=== PATIENT | male | born 1955 | race Caucasian/White ===

== ENCOUNTER → 2018-10-10 14:49 | Outpatient (CLI) | payer OTHER, SELFPAY ==
--- NOTE | 2018-10-10 | DI.ECHO.S_ITS ---
[facility] +---------+ : : [address] : [place] : : : : [id number] : : : : Phone: [phone]+ Echocardiogram Report + + :Name: VALORIE BURGOS Study Date: 10/10/2018 Height: 77 in : :[facility] Exam Location: IS Weight: 275 lb : : Gender: Male BSA: 2.6 m2 : :: 1955 Age: 63 yrs BP: 140/80 mmHg: :Reason For Study: NEAL : :Ordering Physician: Estelita : :Parimi Performed By: Yesenia Page : + + Interpretation Summary The study quality was technically difficult. The left ventricle is normal in size. The ejection fraction is estimated to be 65-70%. The right ventricle is mildly dilated. The right ventricular systolic function is normal. No significant valvular pathology seen. The ascending aorta is moderately enlarged. The IVC is of normal diameter and collapses greater than 50% with a sniff. This suggests a low right atrial pressure of 3 mm Hg. Doppler evaluation across pulmonary valve do not support significant pulmonary hypertension. Procedure: A two-dimensional transthoracic echocardiogram with color flow and Doppler was performed. The study quality was technically difficult. There is no prior echocardiogram noted for this patient. A contrast injection of Definity was performed to improve assessment of LV function. The heart rate ranged between 56-75 bpm during the study. The patient was in normal sinus rhythm during the exam. Left Ventricle: The left ventricle is normal in size. Left ventricular wall thickness is mildly increased. There is no thrombus. The ejection fraction is estimated to be 65-70%. There are no focal wall motion abnormalities. Diastolic parameters suggest a relaxation abnormality of the left ventricle, consistent with probable normal filling pressures. Right Ventricle: The right ventricle is mildly dilated. The right ventricular systolic function is normal. Atria: The left atrium is moderately dilated. The right atrium is borderline dilated. There is no Doppler evidence for an interatrial shunt. Mitral Valve: There is mild mitral annular calcification. There is trace mitral regurgitation. Aortic Valve: The aortic valve is grossly normal. The aortic valve opens well. The aortic valve is slightly calcified. There is no aortic valve stenosis. There is trace aortic regurgitation. Tricuspid Valve: The tricuspid valve is not well visualized, but is grossly normal. Pulmonary artery pressures cannot be estimated because of the lack of a measurable TR jet velocity. There is trace tricuspid regurgitation. Pulmonic Valve: The pulmonic valve is not well visualized. There is a trace or physiologic amount of pulmonic regurgitation. Great Vessels: The aortic root is borderline dilated. The ascending aorta is moderately enlarged. The pulmonary is not well visualized. The IVC is of normal diameter and collapses greater than 50% with a sniff. This suggests a low right atrial pressure of 3 mm Hg. Pericardium/ Pleura There is no pericardial effusion. There is an anterior echo-free space consistent with a fat pad. There is no pleural effusion. MMode/2D Measurements & Calculations LVIDd: 5.2 cm LVOT diam: 2.5 cm LVIDs: 2.9 cm Ao root diam: 4.0 cm FS: 43.5 % asc Aorta Diam: 4.4 cm EPSS: 0.40 cm IVSd: 0.91 cm LVPWd: 1.3 cm LV nash. diameter/BSA (cm/m^2): 2.0 LV sys. diameter/BSA (cm/m^2): 1.1 LA A2 area: 30.8 cm2 RA long axis: 6.4 cm LA A4 area: 34.7 cm2 RA area: 24.7 cm2 LA length (vol): 6.6 cm RA vol: 81.2 ml LA vol: 137.5 ml RA : 31.7 ml/m2 LA vol index: 53.7 ml/m2 RVD1 (basal): 4.8 cm TAPSE: 3.1 cm Doppler Measurements & Calculations Ao V2 max: 124.6 cm/sec LVOT Max Solitario: 81.8 cm/sec Ao V2 mean: 80.9 cm/sec LV V1 max P.7 mmHg Ao max P.2 mmHg LV V1 VTI: 18.8 cm Ao mean P.0 mmHg YUNIOR(I,D): 3.6 cm2 Ao V2 VTI: 25.6 cm YUNIOR(V,D): 3.2 cm2 sev ratio: 0.73 YUNIOR indexed to BSA (cm^2/m^2): 1.4 MV E max solitario: 62.9 cm/sec PA V2 max: 95.4 cm/sec MV A max solitario: 74.2 cm/sec PA V2 mean: 62.6 cm/sec MV E/A: 0.85 PA mean P.8 mmHg Med Peak E' Solitario: 6.3 cm/sec PA Accel Time: 0.12 sec E/E' med: 10.0 Lat Peak E' Solitario: 9.5 cm/sec E/E' lat: 6.6 E/e' average: 8.3 MV dec time: 0.23 sec MV P1/2t: 69.9 msec MV 2t max solitario: 63.8 cm/sec MVA(2t): 3.1 cm2 Reading Physician:AIDEN
== END ==
PROVIDERS: PCP Family Medicine; Visit Provider Internal Medicine Critical Care Medicine
DX: R06.00 Dyspnea, unspecified (principal)
CPT/HCPCS: 93306; Q9957

== ENCOUNTER → 2019-01-20 13:54 | Outpatient (CLI) | payer OTHER, SELFPAY ==
--- NOTE | 2019-01-20 | DI.MRI.S_ITS ---
PROCEDURE: MR LUMBAR SPINE WO CON INDICATIONS: LUMBAR SPINE PAIN TECHNIQUE: Noncontrast sagittal T1 spin echo and T2 fast echo, sagittal STIR, axial T1 and T2 fast spin echo through the lumbar spine. In cases with scoliosis, additional coronal T2 fast spin echo may be performed. COMPARISON: [facility] [address], CR, XR LUMBAR SPINE WITH OLBIQUES PLUS FLEXION EXTENSION, 01/12/2019, 14:18. FINDINGS: Image quality: Excellent. Alignment and Curvature: There is normal bony alignment. Bone Marrow: Marrow is of normal overall signal. No acute vertebral body compression fractures. Spinal Cord: Conus medullaris terminates at the T12-L1 level. Visualized cord demonstrates normal signal and size. Paraspinous Soft Tissues: No paravertebral masses. L1-L2: Preserved disc height. Mild disc desiccation. There is diffuse posterior disc bulge. Left posterior lateral disc protrusion is present with the extruding disc extending inferiorly measuring 9 mm AP, 8 mm transverse and 25 mm cephalocaudal. This causes severe narrowing of the left lateral recess and the left L2 nerve root impingement. There is moderate bilateral facet arthropathy and hypertrophy of ligamentum flavum. The central canal is severely narrowed. Mild left foraminal stenosis. No significant right foraminal stenosis. L2-L3: Hjwd-ci-vzevjlwn loss of disc height and disc desiccation. There is diffuse posterior disc bulge. There is severe bilateral facet arthropathy and hypertrophy of ligamentum flavum. The central canal is severely narrowed. Mild foraminal stenosis bilaterally. L3-L4: Mild loss of disc height and moderate disc desiccation. There is diffuse posterior disc bulge. Small posterior central disc protrusion is present. There is mild bilateral facet arthropathy and hypertrophy of ligamentum flavum. The central canal is moderately narrowed. Minimal foraminal stenosis bilaterally. L4-L5: Moderate loss of disc height and disc desiccation. There is diffuse posterior disc bulge. Small posterior central disc protrusion is present. There is moderate bilateral facet arthropathy. The central canal is moderately narrowed. Moderate foraminal stenosis bilaterally. L5-S1: Moderate loss of disc height and disc desiccation. There is diffuse posterior disc bulge. There is moderate to severe left and mild right facet arthropathy. The central canal is wqyz-rj-tulxdmrhss narrowed. Iyzp-xz-expdsedq foraminal stenosis bilaterally. IMPRESSION: 1. Multilevel degenerative disc disease and facet arthropathy as described. 2. There is a large extruding disc at L1-L2 left posterolaterally, measuring 9 x 8 x 25 mm extending inferiorly. There is severe narrowing of the left lateral recess at L1-L2, impinging the left L2 nerve root. 3. Central canal stenosis, severe at L1-L2 and L2-L3, moderate at L3-L4 and L4-L5. 4. Multilevel foraminal stenosis as described. Dictated by: Annabel Elizondo M.D. on 01/20/2019 at 15:37 Approved by: Annabel Elizondo M.D. on 01/20/2019 at 17:24
== END ==
PROVIDERS: PCP Family Medicine; Visit Provider Physical Medicine & Rehabilitation Pain Medicine
DX: M51.36 Other intervertebral disc degeneration, lumbar region (principal); M51.37 Other intervertebral disc degeneration, lumbosacral region; M51.26 Other intervertebral disc displacement, lumbar region; M48.061 Spinal stenosis, lumbar region without neurogenic claudication; M48.07 Spinal stenosis, lumbosacral region; M47.816 Spondylosis without myelopathy or radiculopathy, lumbar region; M47.817 Spondylosis without myelopathy or radiculopathy, lumbosacral region
CPT/HCPCS: 72148

== ENCOUNTER → 2024-10-14 13:49 | Outpatient (CLI) | payer MEDICARE, SELFPAY ==
--- NOTE | 2024-10-14 13:52 | DI.CT.S_ITS ---
PROCEDURE: CT LUNG LOW DOSE SCREENING INDICATIONS: SCREENING,QUIT 11 YEARS AGO TECHNIQUE: Noncontrast 2.0-2.5 mm thick sections acquired from the pulmonary apices to the posterior costophrenic angles. 7 mm thick axial MIP, and 5 mm coronal and sagittal reformats were then acquired. For radiation dose reduction, the following was used: automated exposure control, adjustment of mA and/or kV according to patient size. COMPARISON: None. FINDINGS: Image quality: Diagnostic. Lower Neck: No enlarged lymph nodes. Thyroid: No thyroid nodules which require sonographic follow up, per consensus guidelines. Axillae: No enlarged lymph nodes. Chest Wall: Unremarkable. Bones: No aggressive appearing bony lesions. Lungs and Pleura: No pneumothorax or pleural effusions. No consolidations. Mild centrilobular emphysema is seen. Biapical scarring and bibasilar scattered atelectasis is seen. Right upper lobe: None. Right middle lobe: None. Right lower lobe: None. Left upper lobe: 2 mm solid subpleural nodule in lateral left upper lobe series 3, image 93. 3 mm solid nodule in left upper lobe series 3, image 103. Left lower lobe: none Heart: Heart size is normal. No pericardial effusion. Thoracic Vessels: The aorta and pulmonary arteries demonstrate normal size. Mild 2 vessel coronary artery atherosclerotic calcifications are seen. Mediastinum and Aileen: No enlarged lymph nodes. Esophagus: No wall thickening. Small hiatal hernia. Upper Abdomen: Visualized upper abdomen solid organs and bowel loops appear normal. Multiple well-circumscribed hypodensities are noted in right and left hepatic lobes measures up to 2.6 cm in size in left hepatic lobe and may represent hepatic cysts. IMPRESSION: 1. No suspicious pulmonary nodules. Tiny 2-3 mm left upper lobe nodules as above. LUNG-RADS 2; continued annual screening, if eligible. Clinically Significant Non-pulmonary Findings: Mild 2 vessel coronary artery atherosclerotic calcifications. Dictated by: Tariq Garibay M.D. on 10/14/2024 at 16:00 Approved by: Tariq Garibay M.D. on 10/14/2024 at 16:09
== END ==
PROVIDERS: PCP Internal Medicine; Referring Provider Internal Medicine; Visit Provider Internal Medicine
DX: Z87.891 Personal history of nicotine dependence (principal); Z12.2 Encounter for screening for malignant neoplasm of respiratory organs; I25.10 Atherosclerotic heart disease of native coronary artery without angina pectoris
CPT/HCPCS: 71271

== ENCOUNTER → 2025-02-17 16:53 | Outpatient (CLI) | payer MEDICARE, SELFPAY ==
[2025-02-17 18:07] LABS: Add Manual Diff / Slide Review NO; Basophils Absolute Auto 100 /uL (0-100); Eosinophils Absolute Auto 300 /uL (0-450); Hematocrit 44.2 % (41-53); Hemoglobin 15.1 g/dL (13.5-17.5); Lymphocytes Absolute Auto 1600 /uL (1100-4500); Lymphocytes Percent Auto 14.7 % (25-40); Mean Corpuscular HGB Conc 34.2 % (30-36); Mean Corpuscular Hemoglobin 29.8 PG (26-34); Mean Corpuscular Volume 87.1 fL (80-100); Monocytes Absolute Auto 700 /uL (0-900); Neutrophils Absolute Auto 7900 /uL (1500-7000); Neutrophils Percent Auto 74.3 % (50-75); Platelet Count 196 X10^3/uL (150-400); Red Blood Cell Count 5.08 X10^6/uL (4.5-5.9); Red Cell Distribution Width 14.1 % (11.6-14.8); White Blood Cell Count 10.6 X10^3/uL (4.5-11.0)
== END ==
PROVIDERS: PCP Family Medicine; Referring Provider Student in an Organized Health Care Education/Training Program; Visit Provider Student in an Organized Health Care Education/Training Program
DX: J44.9 Chronic obstructive pulmonary disease, unspecified (principal); J32.9 Chronic sinusitis, unspecified; J33.9 Nasal polyp, unspecified
CPT/HCPCS: 36415; 85025; 99214

== ENCOUNTER → 2025-03-01 10:56 | Outpatient (CLI) | payer MEDICARE, SELFPAY | LOC: RESP 10:57 | PROVIDERS: PCP Family Medicine; Referring Provider Student in an Organized Health Care Education/Training Program; Visit Provider Student in an Organized Health Care Education/Training Program | DX: J44.9 Chronic obstructive pulmonary disease, unspecified (principal); Z87.891 Personal history of nicotine dependence; R94.2 Abnormal results of pulmonary function studies | CPT/HCPCS: 94060; 94726; 94729 ==

== ENCOUNTER → 2025-08-25 12:49 | Outpatient (CLI) | payer MEDICARE, SELFPAY | LOC: CAR 12:50 | PROVIDERS: PCP Family Medicine; Referring Provider Family Medicine; Visit Provider Family Medicine | DX: R00.2 Palpitations (principal); R42 Dizziness and giddiness; R55 Syncope and collapse | CPT/HCPCS: 93246 ==

== ENCOUNTER 2025-09-23 10:09 | Inpatient (IN) | payer MEDICARE, SELFPAY ==
[2025-09-23] VITALS (18 sets, daily range): BP systolic 111–137; BP diastolic 58–93; PULSE 77–87; RESP 12–20; TEMP 37–37.2; O2SAT 92–99; BMI 27.2
--- NOTE | 2025-09-23 10:29 | EKG_ITS ---
[facility]
--- NOTE | 2025-09-23 10:35 | PC.NURSE ---
Pt reports he wore a ZIO patch x 1 month. F/U with Dr Nolan. Unclear of findings. reports upper midline abd chest/abd pain and pain in R shoulder. currently in afib. reports ablation in the past. is not anticoagulated.
--- NOTE | 2025-09-23 10:37 | ED_ITS ---
HPI - Arrhythmia/Palpitations
--- NOTE | 2025-09-23 10:37 | ED.ARRPALP ---
HPI - Arrhythmia/Palpitations General Chief Complaint: Arrhythmia/Palpitations Stated Complaint: shoulder and hip pain, palpitations, near syncope History of Present Illness HPI narrative: 70-year-old gentleman history of hypertension, atrial fibrillation status post ablation 2020 not on any anticoagulation for which he also has a Zio patch that did not work previously as he sweats through the patch dyslipidemia presents with bilateral shoulder pain and back pain ongoing for the last 4 days. Other than what is stated 14 point review system is negative. Related Data Home Medications ?Medication ?Instructions ?Recorded ?Confirmed ipratropium bromide 21 mcg (0.03 2 spray intranasal BID-TID PRN 02/04/25 08/12/25 %) nasal spray tamsulosin 0.4 mg capsule 0.4 mg PO ONCE PM 02/04/25 08/12/25 amlodipine 5 mg tablet 5 mg PO DAILY 02/17/25 02/17/25 ipratropium bromide 42 mcg (0.06 2 spray intranasal 3XD PRN 02/17/25 08/12/25 %) nasal spray congestion Previous Rx's ?Medication ?Instructions ?Recorded ipratropium bromide 0.02 % 2.5 ml inhalation QID shortness of 02/17/25 solution for inhalation breath or wheezing #150 mL prednisone 5 mg tablet 7.5 mg (1.5 x 5 mg) PO DAILY #135 06/08/25 tabs metformin 750 mg tablet,extended 750 mg PO QAM #90 tabs 07/01/25 release 24 hr rosuvastatin 20 mg tablet 20 mg PO DAILY #90 tabs 08/12/25 budesonide 1 mg/2 mL suspension 0.5 mg inhalation BID #60 mL 09/08/25 for nebulization losartan 100 1 tab PO DAILY #90 tabs 09/10/25 mg-hydrochlorothiazide 25 mg tablet Allergies Allergy/AdvReac Type Severity Reaction Status Date / Time chlorhexidine Allergy Hives Verified 09/23/25 10:34 Review of Systems Review of Systems ROS Unobtainable: All systems reviewed & are unremarkable except as noted in HPI and below Patient History Medical History (Updated 09/23/25 @ 14:17 by Juan Diego Corona, ) Hypertension Chronic rhinosinusitis with multiple nasal polyps Nasal polyps Recurrent sinus infections Sinus congestion Seasonal allergies Asthma Sleep apnea (~2012) COPD (chronic obstructive pulmonary disease) (~1999) Mumps Chicken pox (~1965) Colon polyps (~2015) Surgical History (Updated 12/28/24 @ 19:33 by Paulette Laurent) Anesthesia History of back surgery (~2009) History of tonsillectomy (~1962) Status post Mohs surgery (~2017) History of cardiac radiofrequency ablation (~2020) Social History Smoking Status: Former smoker Exam Narrative Exam Narrative: GENERAL: [70] year old patient appears stated age. Well-developed patient, in mild distress. HEAD: Atraumatic. Normocephalic. EYES: Pupils equal round and reactive. Extraocular motions intact. No scleral icterus. No injection or drainage. ENT: Nose without bleeding, purulent drainage. Throat without erythema, tonsillar hypertrophy or exudate. Airway patent. NECK: Trachea midline. Non tender CARDIOVASCULAR: Regular rate and rhythm without murmurs, gallops, or rubs. RESPIRATORY: Clear to auscultation. Breath sounds equal bilaterally. No wheezes, rales, or rhonchi. GASTROINTESTINAL: Abdomen soft, non-tender, nondistended. EXTREMITIES: No edema or joint tenderness. BACK: Nontender without deformity or crepitance. No flank tenderness. NEURO: AOx3. SKIN: No rash or erythema of visible areas Initial Vital Signs Initial Vital Signs: Vital Signs Pulse Rate 86 09/23/25 10:22 Respiratory Rate 13 09/23/25 10:22 Pulse Oximetry 98 09/23/25 10:22 Course Orders Ordered: ED Orders 09/23/25 10:23 Complete Blood Count AUTO DIFF Stat 09/23/25 10:39 CT angio chest PE protocol Stat EKG-12 Lead Stat 09/23/25 10:50 Comprehensive Metabolic Panel Stat Lipase Stat Magnesium Stat NT-proBNP (BNP-Adult 18+) Stat Troponin I Stat 09/23/25 12:14 CT abdomen pelvis wo con Stat 09/23/25 13:03 Troponin I Stat Discontinued Medications Aspirin (Aspirin 81 Mg Chew Tab) 324 mg PO NOW ONE Stop: 09/23/25 10:40 Last Admin: 09/23/25 10:48 Dose: 324 mg Documented By: EB Vital Signs Vital signs: Vital Signs - 8 hr 09/23/25 10:22 09/23/25 10:30 09/23/25 10:30 Temperature Pulse Rate 86 82 Respiratory Rate 13 17 Blood Pressure 127/74 Pulse Oximetry 98 97 Oxygen Delivery Method 09/23/25 10:33 09/23/25 11:00 09/23/25 11:00 Temperature 98.6 F Pulse Rate 83 78 Respiratory Rate 18 20 Blood Pressure 127/74 124/60 Pulse Oximetry 98 96 Oxygen Delivery Method Room Air 09/23/25 11:17 09/23/25 11:17 09/23/25 11:30 Temperature Pulse Rate 82 Respiratory Rate 15 Blood Pressure 135/93 H 117/62 Pulse Oximetry 99 Oxygen Delivery Method 09/23/25 11:30 09/23/25 12:00 09/23/25 12:00 Temperature Pulse Rate 80 79 Respiratory Rate 19 17 Blood Pressure 112/65 Pulse Oximetry 98 99 Oxygen Delivery Method Room Air MDM - Arrhythmia/Palpitations Lab Data 09/23/25 10:23 09/23/25 10:50 Labs: Lab Results 09/23/25 09/23/25 09/23/25 Range/Units 10:23 10:50 13:03 WBC 11.2 H (4.5-11.0) X10^3/uL RBC 5.08 (4.5-5.9) X10^6/uL Hgb 14.7 (13.5-17.5) g/dL Hct 42.5 (41-53) % MCV 83.7 (80-100) fL MCH 29.0 (26-34) PG MCHC 34.6 (30-36) % RDW 13.1 (11.6-14.8) % Plt Count 227 (150-400) X10^3/uL Neut % (Auto) 76.5 H (50-75) % Lymph % (Auto) 9.5 L (25-40) % Brantley % (Auto) 8.9 (3-14) % Eos % (Auto) 4.3 H (2-4) % Baso % (Auto) 0.8 (0-2) % Neut # (Auto) 8500 H (4303-6699) /uL Lymph # (Auto) 1100 (3017-3653) /uL Brantley # (Auto) 1000 H (0-900) /uL Eos # (Auto) 500 H (0-450) /uL Baso # (Auto) 100 (0-100) /uL Sodium 134 L (137-145) mmol/L Potassium 3.6 (3.4-5.1) mmol/L Chloride 101 (98-107) mmol/L Carbon Dioxide 22 (22-32) mmol/L BUN 13 (9-20) mg/dL Creatinine 0.82 (0.66-1.25) mg/dL Estimated GFR > 60 (>60) mL/min BUN/Creatinine Ratio 15.9 (6-22) Glucose 173 H (70-99) mg/dL Calcium 9.1 (8.4-10.2) mg/dL Magnesium 1.8 (1.6-2.3) mg/dL Total Bilirubin 1.1 (0.2-1.3) mg/dL AST 21 (17-59) IU/L ALT 18 (<50) IU/L Alkaline Phosphatase 59 (38-126) U/L CK-MB (CK-2) Cancelled Troponin I < 0.012 < 0.012 (0.01-0.034) ng/mL NT-Pro-B Natriuret Pep 544 H (<125) pg/mL Total Protein 7.5 (6.3-8.2) g/dL Albumin 4.2 (3.5-5.0) g/dL Globulin 3.3 (1.7-4.1) g/dL Albumin/Globulin Ratio 1.3 (1.0-2.8) Lipase 1160 H (23-300) U/L Imaging Data CT scan - chest: Radiologist's Impresson: [place] [address] CT Scan Report Signed Patient: Brianna Mckeon MR#: [id number] : 1955 Acct:[id number] Age/Sex: 70 / M Date of Service: 09/23/25 Loc: ED Accession Number: [id number] Procedure: CT angio chest PE protocol Ordering Provider: Juan Diego Corona D.O. PROCEDURE: CT ANGIO CHEST PE PROTOCOL INDICATIONS: pain radiating to back pain / bilateral shoulder pain TECHNIQUE: After the administration of intravenous contrast, 2 mm thick sections acquired from the pulmonary apices to the posterior costophrenic angles. 3-dimensional maximum intensity projection (MIP) coronal and sagittal reformats were then acquired through the thorax. For radiation dose reduction, the following was used: automated exposure control, adjustment of mA and/or kV according to patient size. COMPARISON: None. FINDINGS: Image quality: Diagnostic. Pulmonary arteries: Pulmonary arteries are normal in size, and demonstrate no intraluminal filling defects to suggest central pulmonary embolism. Lower Neck: No enlarged lymph nodes. Thyroid: No thyroid nodules which require sonographic follow up, per consensus guidelines. Axillae: No enlarged lymph nodes. Chest Wall: Unremarkable. Bones: Unremarkable. Lungs and Pleura: No pneumothorax or pleural effusions. No consolidation or suspicious nodules. Centrilobular emphysematous changes. Heart: Mild coronary calcification. Aortic valve calcifications. Trace pericardial effusion. Thoracic Vessels: Ascending aorta measures 4.9 centimeter. Mediastinum and Aileen: No enlarged lymph nodes. Esophagus: No wall thickening. No hiatal hernia. Upper Abdomen: Multiple hepatic cysts which do not require follow-up. Simple renal cyst on the right which does not require follow-up. No acute abnormality in the included portions of the upper abdomen. IMPRESSION: No pulmonary embolus. No acute cardiopulmonary process. Ascending aortic aneurysm. Mild coronary calcification and aortic valve calcification. Emphysematous changes. Dictated by: Buster Trinidad M.D. on 09/23/2025 at 11:50 Approved by: Buster Trinidad M.D. on 09/23/2025 at 11:57 CT scan - abdomen/pelvis: Radiologist's Impresson: [place] [address] CT Scan Report Signed Patient: Brianna Mckeon MR#: [id number] : 1955 Acct:[id number] Age/Sex: 70 / M Date of Service: 09/23/25 Loc: ED Accession Number: [id number] Procedure: CT abdomen pelvis wo con Ordering Provider: Juan Diego Corona D.O. PROCEDURE: CT ABDOMEN PELVIS WO CON INDICATIONS: pancreatitis TECHNIQUE: CT of the abdomen and pelvis was obtained without intravenous contrast. Coronal and sagittal reformats were performed. For radiation dose reduction, the following was used: automated exposure control, adjustment of mA and/or kV according to patient size. COMPARISON: None. FINDINGS: Image quality: Diagnostic. Lower Chest: No significant findings. ABDOMEN: Liver: No contour-deforming mass. Multiple hepatic cysts and additional lesions which are too small to characterize but do not require follow-up with the patient is low risk. Gallbladder: Normal Biliary ducts: No biliary dilation. Pancreas: No ductal dilation. Spleen: Size is within normal limits. Adrenal Glands: No adrenal nodules. Kidneys and Ureters: No hydronephrosis. Limited evaluation for renal calculi given excretory phase contrast from recent PE study. Stomach and Bowel: Air-fluid levels within normally distended small bowel and extensive bowel gas throughout the small bowel and large bowel. Normal appendix. Peritoneum: No abnormal intraperitoneal fluid. No free air. Ventral Wall: No significant hernia. Abdominal Nodes: No retroperitoneal or mesenteric adenopathy by size criteria. Vessels: Aorta and inferior vena cava are normal in size. Moderate atherosclerotic plaque. PELVIS: Pelvic Organs: Prostatomegaly. Bladder: Unremarkable. Pelvic Nodes: No enlarged lymph nodes. Miscellaneous: Fat containing left inguinal hernia. Bones: No aggressive osseous abnormality. Severe degenerative changes in the spine. IMPRESSION: Unremarkable appearance of the pancreas within the limitations of noncontrast examination. No peripancreatic fluid collection or edema. Note the pancreas may appear normal early in the course of pancreatitis. Extensive intraluminal bowel gas and air-fluid levels favored to represent ileus. Dictated by: Buster Trinidad M.D. on 09/23/2025 at 12:54 Approved by: Buster Trinidad M.D. on 09/23/2025 at 13:01 ECG Data Interpretation: NSR HR 83 AL 160 QRS [address]-t wave depression v4-6 NO previous EKG to compare MDM Narrative Medical decision making narrative: All lab work, vital signs, nurse triage note, medication list, previous ER visits, and all imaging studies reviewed. WBC 11.2 hemoglobin 14.7 plt 227 sodium 134 potassium 3.6 chloride 1 1 CO2 22 BUN 13 creatinine 0.82 glucose 173 magnesium 1.8 troponin less than 0.012 BNP 544 lipase 1160. CTA showed no acute pulmonary embolus acute cardiopulmonary process ascending aortic aneurysm mild coronary calcification aortic valve calcification and emphysematous changes. Ascending aortic aneurysm measuring 4.[address] abd pelvis shows Unremarkable appearance of the pancreas within the limitations of noncontrast examination. No peripancreatic fluid collection or edema. Note the pancreas may appear normal early in the course of pancreatitis. Extensive intraluminal bowel gas and air-fluid levels favored to represent ileus. Pt given Fluids, zofran and dilaudid here. Case discussed with Dr. Mobley who has graciously accepted the patient for inpatient admission. Discharge Plan Departure Patient Disposition: Admitted as Observation Clinical Impression: Acute pancreatitis Qualifiers: Pancreatitis type: unspecified pancreatitis type Acute pancreatitis complication: uninfected necrosis Qualified Code(s): K85.91 - Acute pancreatitis with uninfected necrosis, unspecified Admit Date/Time: 09/23/25 14:16 Admit Provider: Nate Lopez
--- NOTE | 2025-09-23 10:39 | DI.CT.S_ITS ---
PROCEDURE: CT ANGIO CHEST PE PROTOCOL
[2025-09-23 10:45] LABS: Add Manual Diff / Slide Review NO; Hematocrit 42.5 % (41-53); Hemoglobin 14.7 g/dL (13.5-17.5); Lymphocytes Absolute Auto 1100 /uL (1100-4500); Mean Corpuscular HGB Conc 34.6 % (30-36); Mean Corpuscular Hemoglobin 29.0 PG (26-34); Mean Corpuscular Volume 83.7 fL (80-100); Platelet Count 227 X10^3/uL (150-400)
[2025-09-23] MEDS: ASPIRIN 81 MG CHEW TAB 324 MG PO (10:48)
[2025-09-23 11:18] LABS: Alanine Aminotransferase 18 IU/L (<50); Albumin 4.2 g/dL (3.5-5.0); Albumin Globulin Ratio 1.3 (1.0-2.8); Alkaline Phosphatase 59 U/L (38-126); Blood Urea Nitrogen 13 mg/dL (9-20); Calcium 9.1 mg/dL (8.4-10.2); Carbon Dioxide 22 mmol/L (22-32); Chloride 101 mmol/L (98-107); Estimated Glomerular Filt Rate > 60 mL/min (>60); Globulin 3.3 g/dL (1.7-4.1); Glucose 173 mg/dL (70-99); HEMOLYSIS < 15 (0-50); Lipase 1160 U/L (23-300); Magnesium 1.8 mg/dL (1.6-2.3); Potassium 3.6 mmol/L (3.4-5.1); Sodium 134 mmol/L (137-145); Total Protein 7.5 g/dL (6.3-8.2)
[2025-09-23 11:29] LABS: NT-proBNP (BNP-Adult 18+) 544 pg/mL (<125); Troponin I < 0.012 ng/mL (0.01-0.034)
--- NOTE | 2025-09-23 12:14 | DI.CT.S_ITS ---
PROCEDURE: CT ABDOMEN PELVIS WO CON
[2025-09-23 13:37] LABS: Troponin I < 0.012 ng/mL (0.01-0.034)
[2025-09-23] MEDS: ONDANSETRON 4 MG/2 ML INJ IV (14:20)
[2025-09-23] MEDS: METOCLOPRAMIDE 10 MG/2 ML INJ IV (15:26)
--- NOTE | 2025-09-23 16:39 | CM.DANOTE ---
DCP Assessment Note: Pt is a 70yo male, resident of [place], is admitted for acute pancreatitis. Pt lives in a house with his , Palmira. Pt's Primary Care Provider is Dr. Symone Kline and insurance is [facility]. Reviewed chart and discussed with multidisciplinary team pt's medical status and initial discharge needs. Per ED Provider, pt to be admitted to receieve IV fluids, antiemetics and antibiotics. DCP met w/patient at bedside; introduced self and role. Patient was found in bed, alert and oriented, cooperative with assessment. Pt confirmed living situation and good support in . Pt expressed preference in discharge home when cleared. Pt has no prior history of HH or SNF Rehab. Plan: Anticipating discharge home with spouse to transport when cleared. CM team will follow closely for coordination of discharge plans. BRYANNA Pete Discharge Planning/Care Management CM Discharge Assessment Start: 09/23/25 14:26 Freq: Status: Active Protocol: Document 09/23/25 16:37 MW (Rec: 09/23/25 16:39 MW [id number]) Discharge Planning Assessment Assigned Discharge GELY Guevara Product Merchandiser Provider Dr. Symone Kline Insurance [facility] DPOA/Assigned Palmira Enriquez, Spouse Designee Name Contact Information [phone] Advance Directives? No Has Patient been No admitted in last 30 days? Prior Living House Arrangements Comment [place] [facility] Members spouse Type of Drives own vehicle transporation used prior to admit Independent with ADL Yes 's Is patient alert and Yes oriented? DME Already Rented / Nebulizer Owned Review Status In Process Please Provide Date 09/23/25 Initial DC Assessment Was Performed Next Review Type Continued Stay Review
--- NOTE | 2025-09-23 18:57 | P.HP_ITS ---
History of Present Illness
--- NOTE | 2025-09-23 18:57 | PM.HP.1 ---
History of Present Illness History of Present Illness Date Patient Seen: 09/23/25 Chief complaint: Acute pancreatitis with abdominal pain nausea vomi Narrative: Chief complaint: Acute pancreatitis with abdominal pain nausea and vomiting History of present illness: 09/23: 70-year-old who used to be a heavy drinker but quit drinking 3 years ago began having pain between the shoulder blades dizziness diaphoresis abdominal pain and nausea vomiting after drinking liquids and solids. He has a past medical history of atrial fibrillation Findings in the emergency department significant for a lipase of 1160 CT of the abdomen pelvis negative for biliary or pancreatic findings Workup for chest pain was unrevealing CT angio of the chest negative for PE aneurysm troponin was also negative EKG also negative for ischemic changes Patient admitted for acute pancreatitis Review of systems: No fever or chills rigors No shortness a breath No paresthesia paresis No urinary symptoms Physical examination: No acute distress by my examination elderly gentleman HEENT unremarkable Neck no JVD Heart irregularly irregular rhythm Lungs clear except fine crackles at bilateral bases Abdomen with epigastric tenderness no rebound no guarding Extremities no edema Assessment and plan: Acute pancreatitis without significant findings on CT scan but typical symptoms no biliary source likely due to previous alcohol use and possibly triggered by a fatty diet Bowel rest IV fluids for hydration Analgesic and antiemetics Serial lipase NPO except chips and sips of water Chronic atrial fibrillation: Rate controlled On aspirin CVA prophylaxis per PCP DVT prophylaxis: Subcutaneous heparin Code status: Full code blue Disposition: Inpatient likely 3 days of hospitalization for diet can be advanced Time based billin minutes were involved in evaluation of the patient including [id number] evaluation physical examination discussion with emergency provider review of objective laboratory and imaging including reviewing of imaging myself discussion of care plan with care team [facility] Medical History (Updated 09/23/25 @ 14:17 by Juan Diego Corona DO) Hypertension Chronic rhinosinusitis with multiple nasal polyps Nasal polyps Recurrent sinus infections Sinus congestion Seasonal allergies Asthma Sleep apnea (~2012) COPD (chronic obstructive pulmonary disease) (~1999) Mumps Chicken pox (~1964) Colon polyps (~2014) Surgical History (Updated 12/28/24 @ 19:33 by Paulette Laurent) Anesthesia History of back surgery (~2009) History of tonsillectomy (~1962) Status post Mohs surgery (~2017) History of cardiac radiofrequency ablation (~2020) Social History household members: spouse Smoking Status: Former smoker Meds Home Medications and Allergies Home Medications ?Medication ?Instructions ?Recorded ?Confirmed ?Type ipratropium bromide 21 mcg (0.03 2 spray intranasal BID-TID PRN 02/04/25 08/12/25 History %) nasal spray tamsulosin 0.4 mg capsule 0.4 mg PO ONCE PM 02/04/25 08/12/25 History amlodipine 5 mg tablet 5 mg PO DAILY 02/17/25 02/17/25 History ipratropium bromide 0.02 % 2.5 ml inhalation QID shortness of 02/17/25 08/12/25 Rx solution for inhalation breath or wheezing #150 mL ipratropium bromide 42 mcg (0.06 2 spray intranasal 3XD PRN 02/17/25 08/12/25 History %) nasal spray congestion prednisone 5 mg tablet 7.5 mg (1.5 x 5 mg) PO DAILY #135 06/08/25 08/12/25 Rx tabs metformin 750 mg tablet,extended 750 mg PO QAM #90 tabs 07/01/25 08/12/25 Rx release 24 hr rosuvastatin 20 mg tablet 20 mg PO DAILY #90 tabs 08/12/25 08/12/25 Rx budesonide 1 mg/2 mL suspension 0.5 mg inhalation BID #60 mL 09/08/25 Rx for nebulization losartan 100 1 tab PO DAILY #90 tabs 09/10/25 Rx mg-hydrochlorothiazide 25 mg tablet Allergies Allergy/AdvReac Type Severity Reaction Status Date / Time chlorhexidine Allergy Hives Verified 09/23/25 10:34 Exam Vital Signs (past 8 hours): - 09/23/25 11:00 09/23/25 11:00 09/23/25 11:17 Pulse Rate 78 82 Respiratory Rate 20 15 Blood Pressure 124/60 Pulse Oximetry 96 99 Oxygen Delivery Method 09/23/25 11:17 09/23/25 11:30 09/23/25 11:30 Pulse Rate 80 Respiratory Rate 19 Blood Pressure 135/93 H 117/62 Pulse Oximetry 98 Oxygen Delivery Method 09/23/25 12:00 09/23/25 12:00 09/23/25 12:28 Pulse Rate 79 Respiratory Rate 17 Blood Pressure 112/65 132/72 Pulse Oximetry 99 Oxygen Delivery Method Room Air 09/23/25 12:28 09/23/25 12:30 09/23/25 12:30 Pulse Rate 79 78 Respiratory Rate 13 12 Blood Pressure 112/65 Pulse Oximetry 97 96 Oxygen Delivery Method 09/23/25 13:00 09/23/25 13:00 09/23/25 13:30 Pulse Rate 80 Respiratory Rate 19 Blood Pressure 124/73 118/67 Pulse Oximetry 96 Oxygen Delivery Method 09/23/25 13:30 09/23/25 14:00 09/23/25 14:00 Pulse Rate 79 87 Respiratory Rate 19 15 Blood Pressure 120/73 Pulse Oximetry 95 95 Oxygen Delivery Method 09/23/25 14:30 09/23/25 14:30 09/23/25 15:00 Pulse Rate 78 Respiratory Rate 13 Blood Pressure 111/58 L 120/63 Pulse Oximetry 92 Oxygen Delivery Method 09/23/25 15:00 09/23/25 15:30 09/23/25 15:30 Pulse Rate 79 77 Respiratory Rate 14 12 Blood Pressure 126/74 Pulse Oximetry 96 96 Oxygen Delivery Method 09/23/25 16:00 09/23/25 16:00 09/23/25 16:30 Pulse Rate 81 Respiratory Rate 19 Blood Pressure 137/62 119/63 Pulse Oximetry 96 Oxygen Delivery Method 09/23/25 16:30 Pulse Rate 85 Respiratory Rate 20 Blood Pressure Pulse Oximetry 96 Oxygen Delivery Method Oxygen Delivery Method Room Air Objective Labs 09/23/25 10:23 09/23/25 10:50 Labs: Laboratory Results - last 24 hr 09/23/25 09/23/25 09/23/25 10:23 10:50 13:03 WBC 11.2 H RBC 5.08 Hgb 14.7 Hct 42.5 MCV 83.7 MCH 29.0 MCHC 34.6 RDW 13.1 Plt Count 227 Neut % (Auto) 76.5 H Lymph % (Auto) 9.5 L [place] % (Auto) 8.9 Eos % (Auto) 4.3 H Baso % (Auto) 0.8 Neut # (Auto) 8500 H Lymph # (Auto) 1100 [place] # (Auto) 1000 H Eos # (Auto) 500 H Baso # (Auto) 100 Sodium 134 L Potassium 3.6 Chloride 101 Carbon Dioxide 22 BUN 13 Creatinine 0.82 Estimated GFR > 60 BUN/Creatinine Ratio 15.9 Glucose 173 H Calcium 9.1 Magnesium 1.8 Total Bilirubin 1.1 AST 21 ALT 18 Alkaline Phosphatase 59 CK-MB (CK-2) Cancelled Troponin I < 0.012 < 0.012 NT-Pro-B Natriuret Pep 544 H Total Protein 7.5 Albumin 4.2 Globulin 3.3 Albumin/Globulin Ratio 1.3 Lipase 1160 H Assessment & Plan Time-Based Coding :: [TOTAL MINUTES] spent with patient and on the chart (including review of chart, obtaining history, exam, reviewing outside data, placing orders, documenting exam and treatment plan, and counseling patient) on [DATE]. Quality VTE Deep Vein Thrombosis/Pulmonary Embolism Present on Admission: No
[2025-09-23] MEDS: LACTATED RINGERS 1,000 ML 1000 ML IV (20:43)
[2025-09-23] MEDS: HEPARIN 5,000 UNIT/ML VIAL 5000 UNIT SUBCUT (20:47)
[2025-09-23] MEDS: TAMSULOSIN 0.4 MG CAPSULE PO (20:47)
[2025-09-23] MEDS: SODIUM CHLORIDE 0.9% 1,000 ML 150 ML IV (21:54)
[2025-09-24] MEDS: ONDANSETRON 4 MG/2 ML INJ IV (02:58)
[2025-09-24 03:00] VITALS: BP 131/92; PULSE 96; RESP 18; TEMP 36.8; O2SAT 96
[2025-09-24] MEDS: SODIUM CHLORIDE 0.9% 1,000 ML 150 ML IV ×3 (04:33→18:37)
[2025-09-24 05:47] LABS: Alanine Aminotransferase 15 IU/L (<50); Albumin 3.7 g/dL (3.5-5.0); Albumin Globulin Ratio 1.2 (1.0-2.8); Alkaline Phosphatase 51 U/L (38-126); Blood Urea Nitrogen 21 mg/dL (9-20); Calcium 8.7 mg/dL (8.4-10.2); Carbon Dioxide 25 mmol/L (22-32); Chloride 102 mmol/L (98-107); Estimated Glomerular Filt Rate > 60 mL/min (>60); Globulin 3.1 g/dL (1.7-4.1); Glucose 138 mg/dL (70-99); HEMOLYSIS < 15 (0-50); Potassium 3.5 mmol/L (3.4-5.1); Sodium 136 mmol/L (137-145); Total Protein 6.8 g/dL (6.3-8.2)
[2025-09-24] MEDS: BUDESONIDE 0.5 MG/2 ML NEB INH ×2 (09:04→20:15)
[2025-09-24 09:13] VITALS: PULSE 76; RESP 16; O2SAT 95
[2025-09-24] MEDS: HEPARIN 5,000 UNIT/ML VIAL 5000 UNIT SUBCUT ×2 (10:13→21:17)
[2025-09-24 12:00] VITALS: BP 133/74; PULSE 63; RESP 20; TEMP 36.3; O2SAT 97
--- NOTE | 2025-09-24 12:08 | DIET.CONS ---
Dietary Consultation Note Admission Date: 09/23/2025 14:16 Assessment: 70 y M admitted for pancreatitis. Dietitian screened for low MNA score Met with pt and partner in room. Reports when on metformin for last few months is still eating multiple meals w protein sources, just a little less d/t reduced appetite. This has led to weight loss. Weight loss amounts reviewed with pt and are non-severe. Communicated that w pt. Reports original weight was 270# some time ago but was on steroids at that time. Weight dropped to 240# when those were d/c at metformin was started. Within last week has had an increase in nausea but was still eating normal meals up until day or 2 ago. Has questions regarding what would be appropriate foods to eat with acute pancreatitis. Would like list. Notes they have had prior DM education and feel confident in that aspect of nutrition. His BG run 120-130s per pt. Ht: 195.58 cm Wt: 104.326 kg BMI: 27.2 UBW: 111 kg on 02/17/25, 108.4 kg on 08/12/25, pt reports 230# to ED upon admission which is weight he took a couple days prior to admission at home scale. Weight loss is non-severe. Last BM: 09/23/25 (09/23/25 17:04) MNA: 9 Erick Score: 21 Diet: 09/23/25 19:06 NPO Diet Diet Modifications: And medications NPO Type: NPO except for Ice Chips Labs: RBC 5.08 X10^6/uL (4.5-5.9) 09/23/25 10:23 Hgb 14.7 g/dL (13.5-17.5) 09/23/25 10:23 Hct 42.5 % (41-53) 09/23/25 10:23 Creatinine 0.80 mg/dL (0.66-1.25) 09/24/25 04:40 NT-Pro-B Natriuret Pep 544 pg/mL (<125) H 09/23/25 10:50 Nutrition Diagnosis: Altered GI functions r/t altercation in function of GI accessory organ aeb pancreatitis Interventions: Provided a list of a few foods to avoid for the first couple of days to 1 week when diet is advanced (e.g. avoiding a fast food meal/high fatty meats/fried foods initially when returning to normal diet) and reviewed this w pt and Monitoring/Evaluations: diet advancement, po intakes Electronically Signed by: Millicent Mar 09/24/25 12:08 Clinical Dietitian [address] [id number]
[2025-09-24 12:37] LABS: Hemoglobin A1C% w Est Avg Glu 7.0 % (4.0-6.0)
--- NOTE | 2025-09-24 16:32 | PM.PN.IH.1 ---
Subjective Subjective Date Patient Seen: 09/24/25 Time Patient Seen: 08:43 Interval history: HPI: 70-year-old who used to be a heavy drinker but quit drinking 3 years ago began having pain between the shoulder blades dizziness diaphoresis abdominal pain and nausea vomiting after drinking liquids and solids. He has a past medical history of atrial fibrillation Findings in the emergency department significant for a lipase of 1160 CT of the abdomen pelvis negative for biliary or pancreatic findings Workup for chest pain was unrevealing CT angio of the chest negative for PE aneurysm troponin was also negative EKG also negative for ischemic changes Patient admitted for acute pancreatitis Interval history: 09/24: The patient reports ongoing epigastric abdominal discomfort. He does not feel ready to eat or drink fluids at this point. Exam Vital Signs (past 8 hours): - 09/24/25 09:13 09/24/25 09:45 09/24/25 12:00 Temperature 97.3 F L Pulse Rate 76 63 Respiratory Rate 16 20 Blood Pressure 133/74 Pulse Oximetry 95 97 Oxygen Delivery Method Nasal Cannula Nasal Cannula Oxygen Flow Rate 2 Oxygen Delivery Method Nasal Cannula Oxygen Flow Rate 2 Narrative Exam Narrative: No acute distress by my examination elderly gentleman HEENT unremarkable Neck no JVD Heart irregularly irregular rhythm Lungs clear except fine crackles at bilateral bases Abdomen with epigastric tenderness no rebound no guarding Extremities no edema Objective Labs 09/23/25 10:23 09/24/25 04:40 Labs: Laboratory Results - last 24 hr 09/24/25 09/24/25 04:40 12:09 Sodium 136 L Potassium 3.5 Chloride 102 Carbon Dioxide 25 BUN 21 H Creatinine 0.80 Estimated GFR > 60 BUN/Creatinine Ratio 26.3 H Glucose 138 H Hemoglobin A1c 7.0 H Calcium 8.7 Total Bilirubin 0.8 AST 18 ALT 15 Alkaline Phosphatase 51 Total Protein 6.8 Albumin 3.7 Globulin 3.1 Albumin/Globulin Ratio 1.2 [facility] Medical History Asthma Chicken pox (~1964) Chronic rhinosinusitis with multiple nasal polyps Colon polyps (~2014) COPD (chronic obstructive pulmonary disease) (~1999) Hypertension Mumps Nasal polyps Recurrent sinus infections Seasonal allergies Sinus congestion Sleep apnea (~2012) Surgical History Anesthesia History of back surgery (~2009) History of cardiac radiofrequency ablation (~2020) History of tonsillectomy (~1962) Status post Mohs surgery (~2018) Social History household members: spouse Smoking Status: Former smoker Assessment & Plan Assessment & Plan narrative: Acute pancreatitis without significant findings on CT scan but typical symptoms no biliary source likely due to previous alcohol use and possibly triggered by a fatty diet Bowel rest IV fluids for hydration Analgesic and antiemetics NPO except chips and sips of water Chronic atrial fibrillation: Rate controlled On aspirin CVA prophylaxis per PCP DVT prophylaxis: Subcutaneous heparin Code status: Full code blue Disposition: Inpatient likely 3 days of hospitalization for diet can be advanced Quality VTE Deep Vein Thrombosis/Pulmonary Embolism Present on Admission: No [facility]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
[2025-09-24 17:30] LABS: Add Manual Diff / Slide Review NO; Hematocrit 40.0 % (41-53); Hemoglobin 13.8 g/dL (13.5-17.5); Lymphocytes Absolute Auto 1300 /uL (1100-4500); Mean Corpuscular HGB Conc 34.6 % (30-36); Mean Corpuscular Hemoglobin 29.1 PG (26-34); Mean Corpuscular Volume 84.2 fL (80-100); Platelet Count 209 X10^3/uL (150-400)
[2025-09-24 17:54] LABS: Lipase 991 U/L (23-300)
[2025-09-24 18:00] VITALS: BP 133/96; PULSE 78; RESP 18; TEMP 37.2; O2SAT 97
[2025-09-24] MEDS: ALBUTEROL/IPRATROPIUM 3 ML AMPUL INH (20:15)
[2025-09-24 20:50] VITALS: BP 152/74; PULSE 94; RESP 18; TEMP 37.6; O2SAT 95
[2025-09-24] MEDS: TAMSULOSIN 0.4 MG CAPSULE PO (21:17)
[2025-09-25] MEDS: SODIUM CHLORIDE 0.9% 1,000 ML 150 ML IV ×2 (01:18→09:27)
[2025-09-25 03:00] VITALS: BP 134/71; PULSE 69; RESP 18; TEMP 36.9; O2SAT 99
[2025-09-25 06:10] LABS: Alanine Aminotransferase 15 IU/L (<50); Albumin 3.4 g/dL (3.5-5.0); Albumin Globulin Ratio 1.2 (1.0-2.8); Alkaline Phosphatase 51 U/L (38-126); Blood Urea Nitrogen 16 mg/dL (9-20); Calcium 8.3 mg/dL (8.4-10.2); Carbon Dioxide 25 mmol/L (22-32); Chloride 104 mmol/L (98-107); Estimated Glomerular Filt Rate > 60 mL/min (>60); Globulin 2.9 g/dL (1.7-4.1); Glucose 136 mg/dL (70-99); HEMOLYSIS < 15 (0-50); Potassium 4.1 mmol/L (3.4-5.1); Sodium 136 mmol/L (137-145); Total Protein 6.3 g/dL (6.3-8.2)
[2025-09-25] MEDS: KETOROLAC 30 MG/ML VIAL 15 MG IV (09:24)
[2025-09-25 10:10] VITALS: PULSE 84; RESP 20; O2SAT 98
[2025-09-25] MEDS: BUDESONIDE 0.5 MG/2 ML NEB INH ×2 (10:10→19:31)
[2025-09-25] MEDS: ALBUTEROL/IPRATROPIUM 3 ML AMPUL INH ×2 (10:10→19:31)
--- NOTE | 2025-09-25 11:09 | EKG_ITS ---
[facility]
--- NOTE | 2025-09-25 11:10 | DI.CT.S_ITS ---
PROCEDURE: CT ANGIO CHEST ABDOMEN PELVIS
--- NOTE | 2025-09-25 11:26 | PM.PN.IH.1 ---
Subjective Subjective Date Patient Seen: 09/25/25 Time Patient Seen: 08:33 Interval history: HPI: 70-year-old who used to be a heavy drinker but quit drinking 3 years ago began having pain between the shoulder blades dizziness diaphoresis abdominal pain and nausea vomiting after drinking liquids and solids. He has a past medical history of atrial fibrillation Findings in the emergency department significant for a lipase of 1160 CT of the abdomen pelvis negative for biliary or pancreatic findings Workup for chest pain was unrevealing CT angio of the chest negative for PE aneurysm troponin was also negative EKG also negative for ischemic changes Patient admitted for acute pancreatitis Interval history: 09/24: The patient reports ongoing epigastric abdominal discomfort. He does not feel ready to eat or drink fluids at this point. 09/25: The patient reports increased pain in his shoulders, new onset of central chest pressure. He states abdominal discomfort and nausea have resolved mostly. He advanced to a clear liquid diet but states he has little appetite. He has pain in both groins. 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 He was given 15 mg of IV Toradol and he states pain has reduced from 10/10 to 8/10. Exam Vital Signs (past 8 hours): - 09/25/25 10:10 Pulse Rate 84 Respiratory Rate 20 Pulse Oximetry 98 Oxygen Delivery Method Room Air Oxygen Delivery Method Room Air Oxygen Flow Rate 1 Narrative Exam Narrative: No acute distress by my examination elderly gentleman HEENT unremarkable Neck no JVD Heart irregularly irregular rhythm Lungs clear except fine crackles at bilateral bases Abdomen nontender, mildly distended no rebound no guarding Extremities no edema Musculoskeletal pain with lifting arms overhead and range of motion of legs Vascular: 2+ radial symmetric pulses, 2+ dorsalis pedis/posterior tibialis symmetric pulses Objective ECG Impression: Sinus rhythm with premature atrial complexes at 98 beats per minute Incomplete right bundle branch block ST & T wave abnormality, consider lateral ischemia Prolonged QT Compared with EKG 09/23/2025 the lateral T-wave inversions are much less pronounced, with resolved ST depression in leads V4 and V5 Imaging *: Radiologist's impression: 1. Chest CT angiography PE protocol 09/23/2025 No pulmonary embolus. No acute cardiopulmonary process. Ascending aortic aneurysm. Mild coronary calcification and aortic valve calcification. Emphysematous changes. 2. Abdomen/pelvis CT 09/23/2025: Unremarkable appearance of the pancreas within the limitations of noncontrast examination. No peripancreatic fluid collection or edema. Note the pancreas may appear normal early in the course of pancreatitis. Extensive intraluminal bowel gas and air-fluid levels favored to represent ileus. 3. Chest/abdomen/pelvis CT angiogram 09/25/2025: No acute aortic syndrome. Findings suggestive of duodenitis. 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 Other chronic findings as above. Labs 09/25/25 11:43 09/25/25 05:00 Labs: Laboratory Results - last 24 hr 09/24/25 09/24/25 09/25/25 12:09 17:22 05:00 WBC 9.0 RBC 4.75 Hgb 13.8 Hct 40.0 L MCV 84.2 MCH 29.1 MCHC 34.6 RDW 12.7 Plt Count 209 Neut % (Auto) 68.3 Lymph % (Auto) 14.0 L [place] % (Auto) 9.1 Eos % (Auto) 7.7 H Baso % (Auto) 0.9 Neut # (Auto) 6100 Lymph # (Auto) 1300 [place] # (Auto) 800 Eos # (Auto) 700 H Baso # (Auto) 100 Sodium 136 L Potassium 4.1 Chloride 104 Carbon Dioxide 25 BUN 16 Creatinine 0.72 Estimated GFR > 60 BUN/Creatinine Ratio 22.2 H Glucose 136 H Hemoglobin A1c 7.0 H Calcium 8.3 L Total Bilirubin 0.9 AST 17 ALT 15 Alkaline Phosphatase 51 Total Protein 6.3 Albumin 3.4 L Globulin 2.9 Albumin/Globulin Ratio 1.2 Lipase 991 H [facility] Medical History Asthma Chicken pox (~1964) Chronic rhinosinusitis with multiple nasal polyps Colon polyps (~2014) COPD (chronic obstructive pulmonary disease) (~1999) Hypertension Mumps Nasal polyps Recurrent sinus infections Seasonal allergies Sinus congestion Sleep apnea (~2012) Surgical History Anesthesia History of back surgery (~2009) History of cardiac radiofrequency ablation (~2020) History of tonsillectomy (~1963) Status post Mohs surgery (~2018) Social History household members: spouse Smoking Status: Former smoker Assessment & Plan Assessment & Plan narrative: Acute pancreatitis without significant findings on CT scan but typical symptoms no biliary source likely due to previous alcohol use and possibly triggered by a fatty diet, improved Stop IV fluids Analgesic and antiemetics General diet Shoulder, back and groin pain Possibly musculoskeletal No evidence of aortic dissection Consider polymyalgia rheumatica, consider trial of oral prednisone with outpatient follow-up EKG changes No evidence of myocardial infarction Monitor on telemetry Follow clinically Chronic atrial fibrillation: Rate controlled On aspirin CVA prophylaxis per PCP DVT prophylaxis: SCDs Code status: Full code blue Disposition: Inpatient likely discharge tomorrow Quality VTE Deep Vein Thrombosis/Pulmonary Embolism Present on Admission: No 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
--- NOTE | 2025-09-25 11:43 | PC.NURSE ---
Pt resting in the bed, states he feels better from having toradol, at bedside, IV fluids running per MD order. RN notified of additional orders per MD, lab work draw, pt completed CT and back in his room, EKG done, will continue to monitor.
[2025-09-25 11:53] LABS: Add Manual Diff / Slide Review NO; Hematocrit 36.2 % (41-53); Hemoglobin 12.6 g/dL (13.5-17.5); Lymphocytes Absolute Auto 700 /uL (1100-4500); Mean Corpuscular HGB Conc 34.8 % (30-36); Mean Corpuscular Hemoglobin 29.3 PG (26-34); Mean Corpuscular Volume 84.4 fL (80-100); Platelet Count 199 X10^3/uL (150-400)
[2025-09-25 12:00] VITALS: BP 129/71; PULSE 92; RESP 16; TEMP 36.9; O2SAT 96
[2025-09-25 12:07] LABS: Creatine Kinase 56 U/L (55-170); Lipase 513 U/L (23-300)
[2025-09-25 12:14] LABS: Lipase 604 U/L (23-300)
[2025-09-25 12:16] LABS: Troponin I < 0.012 ng/mL (0.01-0.034)
--- NOTE | 2025-09-25 13:45 | PC.NURSE ---
pt resting in room with eyes closed, no distress noted, tv on, call light with in reach, will continue to monitor.
--- NOTE | 2025-09-25 15:09 | PC.NURSE ---
Pt awake eating a banana, tolerating foods well. States he feels much better and is happy to go home tomorrow. Pt currently watching football, will continue to monitor, call light within reach.
--- NOTE | 2025-09-25 17:25 | PC.NURSE ---
Pt sitting in bed, at bedside, pt talking to his best friend on the phone, legs crossed, pt denies pain,
--- NOTE | 2025-09-25 18:17 | PC.NURSE ---
pt at most of his dinner, also ate a banana that brought in. Pt states feeling better, talking on the phone.
[2025-09-25 18:57] VITALS: BP 135/71; PULSE 77; RESP 16; TEMP 37.3; O2SAT 95
[2025-09-25 20:00] VITALS: BP 112/74; PULSE 75; RESP 18; TEMP 36.5; O2SAT 94
[2025-09-25] MEDS: TAMSULOSIN 0.4 MG CAPSULE PO (20:27)
[2025-09-26 02:00] VITALS: BP 135/75; PULSE 70; RESP 17; TEMP 36.7; O2SAT 97
[2025-09-26 06:00] VITALS: BP 125/68; PULSE 83; RESP 16; TEMP 36.6; O2SAT 95
[2025-09-26 06:15] LABS: Add Manual Diff / Slide Review NO; Hematocrit 36.1 % (41-53); Hemoglobin 12.9 g/dL (13.5-17.5); Lymphocytes Absolute Auto 1100 /uL (1100-4500); Mean Corpuscular HGB Conc 35.7 % (30-36); Mean Corpuscular Hemoglobin 29.8 PG (26-34); Mean Corpuscular Volume 83.6 fL (80-100); Platelet Count 191 X10^3/uL (150-400)
[2025-09-26 06:25] LABS: Alanine Aminotransferase 14 IU/L (<50); Albumin 3.4 g/dL (3.5-5.0); Albumin Globulin Ratio 1.1 (1.0-2.8); Alkaline Phosphatase 52 U/L (38-126); Blood Urea Nitrogen 11 mg/dL (9-20); Calcium 8.5 mg/dL (8.4-10.2); Carbon Dioxide 24 mmol/L (22-32); Chloride 104 mmol/L (98-107); Estimated Glomerular Filt Rate > 60 mL/min (>60); Globulin 3.0 g/dL (1.7-4.1); Glucose 137 mg/dL (70-99); HEMOLYSIS < 15 (0-50); Potassium 3.9 mmol/L (3.4-5.1); Sodium 138 mmol/L (137-145); Total Protein 6.4 g/dL (6.3-8.2)
[2025-09-26 06:29] LABS: Lipase 517 U/L (23-300)
[2025-09-26] MEDS: ALBUTEROL/IPRATROPIUM 3 ML AMPUL INH (07:42)
[2025-09-26] MEDS: BUDESONIDE 0.5 MG/2 ML NEB INH (07:42)
[2025-09-26 07:45] VITALS: PULSE 65; RESP 18; O2SAT 98
--- NOTE | 2025-09-26 11:11 | CM.DPNOTE ---
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 P: dc today home with spouse to transport and no newly identified DCP needs. will continue to follow as needed should any arise GELY Benavidez
--- NOTE | 2025-09-26 11:15 | P.DS_ITS ---
History of Present Illness
--- NOTE | 2025-09-26 11:15 | PM.DS.IH.1 ---
History of Present Illness History of Present Illness Date Patient Seen: 09/26/25 Time Patient Seen: 07:36 Chief complaint: Acute pancreatitis with abdominal pain nausea vomi Narrative: Chief complaint: Acute pancreatitis with abdominal pain nausea and vomiting History of present illness: 70-year-old who used to be a heavy drinker but quit drinking 3 years ago began having pain between the shoulder blades dizziness diaphoresis abdominal pain and nausea vomiting after drinking liquids and solids. He has a past medical history of atrial fibrillation Findings in the emergency department significant for a lipase of 1160 CT of the abdomen pelvis negative for biliary or pancreatic findings Workup for chest pain was unrevealing CT angio of the chest negative for PE aneurysm troponin was also negative EKG also negative for ischemic changes Patient admitted for acute pancreatitis Discharge Providers Provider Date of admission: 09/23/25 14:16 Discharge Date: 09/26/25 Primary care physician: Symone Kline MD Discharge provider: Jairo Chairez MD Summary Hospital Course Discharge Diagnosis: 1. Acute pancreatitis without significant findings on CT scan but typical symptoms no biliary source likely due to previous alcohol use and possibly triggered by a fatty diet, improved 2. Shoulder, back and groin pain, possibly musculoskeletal 3. Chronic atrial fibrillation 4. COPD. 5. Diabetes mellitus, type 2 6. Hypertension. 7. Hyperlipidemia. 8. BPH. Hospital Course: The patient was admitted and placed on a program of bowel rest, IV hydration and pain control. He was feeling significantly better in terms of epigastric and abdominal symptoms after 24-48 hours, however developed severe pain in his shoulders and groins, that he states was an increase from symptoms developed in the previous week, or at least became more apparent as his abdominal pain resolved. He also developed mild central chest pressure. He ruled out for myocardial infarction by cardiac enzymes and had a normal CT angiogram of the chest, abdomen and pelvis which ruled out aortic dissection. He was given a single dose of IV ketorolac with marked improvement of symptoms. Symptoms had been fairly recent and sudden in onset, and despite elevated inflammatory markers, unlikely to represent underlying rheumatologic disease, and were suspected to be primary osteoarthritic flares. His COPD remained stable during hospitalization, as did his other medical issues. He was feeling significantly better, able to tolerate diet and walk in the hallway without limitation, interested in discharge home and no other issues arose. Status at Discharge Cognitive/behavioral status at discharge: oriented Functional status at discharge: independent ambulation Overall status at discharge: patient is back to baseline Time Spent with Patient Time spent: Greater than 30 minutes Exam Vital Signs (past 8 hours): - 09/26/25 06:00 09/26/25 07:45 Temperature 97.8 F Pulse Rate 83 65 Respiratory Rate 16 18 Blood Pressure 125/68 Pulse Oximetry 95 98 Oxygen Delivery Method Room Air Oxygen Delivery Method Room Air Oxygen Flow Rate 0 Objective ECG Impression: Sinus rhythm with premature atrial complexes at 98 beats per minute Incomplete right bundle branch block ST & T wave abnormality, consider lateral ischemia Prolonged QT Compared with EKG 09/23/2025 the lateral T-wave inversions are much less pronounced, with resolved ST depression in leads V4 and V5 Imaging *: Radiologist's impression: 1. Chest CT angiography PE protocol 09/23/2025 No pulmonary embolus. No acute cardiopulmonary process. Ascending aortic aneurysm. Mild coronary calcification and aortic valve calcification. Emphysematous changes. 2. Abdomen/pelvis CT 09/23/2025: Unremarkable appearance of the pancreas within the limitations of noncontrast examination. No peripancreatic fluid collection or edema. Note the pancreas may appear normal early in the course of pancreatitis. Extensive intraluminal bowel gas and air-fluid levels favored to represent ileus. 3. Chest/abdomen/pelvis CT angiogram 09/25/2025: No acute aortic syndrome. Findings suggestive of duodenitis. 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 Other chronic findings as above. Labs 09/26/25 05:10 09/26/25 05:10 Labs: Laboratory Results - last 24 hr 09/25/25 09/25/25 09/26/25 11:43 12:00 05:10 WBC 9.6 9.9 RBC 4.29 L 4.32 L Hgb 12.6 L 12.9 L Hct 36.2 L 36.1 L MCV 84.4 83.6 MCH 29.3 29.8 MCHC 34.8 35.7 RDW 12.8 12.7 Plt Count 199 191 Neut % (Auto) 79.6 H 69.6 Lymph % (Auto) 7.3 L 10.7 L [place] % (Auto) 8.7 10.0 Eos % (Auto) 3.9 9.0 H Baso % (Auto) 0.5 0.7 Neut # (Auto) 7600 H 6900 Lymph # (Auto) 700 L 1100 [place] # (Auto) 800 1000 H Eos # (Auto) 400 900 H Baso # (Auto) 100 100 ESR 48 H Sodium 138 Potassium 3.9 Chloride 104 Carbon Dioxide 24 BUN 11 Creatinine 0.70 Estimated GFR > 60 BUN/Creatinine Ratio 15.7 Glucose 137 H Calcium 8.5 Total Bilirubin 1.0 AST 20 ALT 14 Alkaline Phosphatase 52 Total Creatine Kinase 56 Troponin I < 0.012 C-Reactive Protein 11.2 H Total Protein 6.4 Albumin 3.4 L Globulin 3.0 Albumin/Globulin Ratio 1.1 Lipase 513 H 604 H 517 H PFSH Medical History Asthma Chicken pox (~1964) Chronic rhinosinusitis with multiple nasal polyps Colon polyps (~2014) COPD (chronic obstructive pulmonary disease) (~1999) Hypertension Mumps Nasal polyps Recurrent sinus infections Seasonal allergies Sinus congestion Sleep apnea (~2012) Surgical History Anesthesia History of back surgery (~2009) History of cardiac radiofrequency ablation (~2020) History of tonsillectomy (~1962) Status post Mohs surgery (~2017) Social History household members: spouse Smoking Status: Former smoker Discharge Plan Discharge Plan Patient Disposition: Home Provider Discharge Comment: followup with PCP 1 week Discharge orders & Medications Prescriptions: Continued tamsulosin 0.4 mg capsule 0.4 mg PO ONCE PM ipratropium bromide 21 mcg (0.03 %) spray,non-aerosol 2 spray intranasal BID-TID PRN Rx Instructions: administer into each nostril rosuvastatin 20 mg tablet 20 mg PO DAILY Qty: 90 3RF metformin 750 mg tablet extended release 24 hr 750 mg PO QAM Qty: 90 0RF budesonide 1 mg/2 mL suspension for nebulization 0.5 mg inhalation BID Qty: 60 12RF losartan-hydrochlorothiazide 100-25 mg tablet 1 tab PO DAILY Qty: 90 0RF amlodipine 5 mg tablet 5 mg PO DAILY ipratropium bromide 42 mcg (0.06 %) spray,non-aerosol 2 spray intranasal 3XD PRN (Reason: congestion) ipratropium bromide 0.02 % solution 2.5 ml inhalation QID Qty: 150 12RF Rx Instructions: Please provide 90 day supply Discontinued prednisone 5 mg tablet 7.5 mg PO DAILY Qty: 135 0RF Follow up/Referrals: Symone Kline MD [Primary Care Provider, [facility]] Diet/Activity/Treatments Diet: Regular, Low-fat and Low-sodium Skin/Wound/Dressing Care Report to your healthcare provider any signs of infection, such as:: chills, fever and increased pain Visit Report/Discharge Packet Stand Alone Forms: Patient Portal/API, Stroke Signs & Symptoms Discharge Data Primary Care Provider: Symone Kline Quality VTE Deep Vein Thrombosis/Pulmonary Embolism Present on Admission: No MIPS - Admit I confirm the patient?s Advance Care Plan is present, Code status is documented, Surrogate decision maker is in patient?s record [If Yes, STOP here]: Yes MIPS - Meds 'Current medications' to include all prescriptions, [id number] products, herbals, cannabis/cannabidiol products, and vitamin/mineral/dietary (nutritional) supplements. I have utilized all available resources to obtain, update, or review the patient?s current medications. [If Yes, STOP here]: Yes MIPS - DC The patient has a history of heart transplant or Left Ventricular Assist Device (LVAD). If yes, STOP here.: No The patient has current or prior documentation of left ventricular ejection fraction (LVEF) less than or equal to 40%, or moderate or severely depressed left ventricular systolic function.: No A. The patient was prescribed or already taking an Angiotensin-Converting Enzyme (CHAN) Inhibitor, or Angiotensin Receptor Ciarra (ARB).: Yes B. The patient was prescribed or already taking a beta-ciarra. [If Yes to Both A & B, STOP here]: No Patient not prescribed/taking CHAN or ARB, no reason given.: No Patient not prescribed/taking beta-ciarra, no reason given.: No IH PROFEE Charge Codes Discharge inpatient/observation: [id number]
--- NOTE | 2025-09-26 12:35 | PC.NURSE ---
Discharged instructions given and understood. PIV not present at this time. Pt discharged with pt's via private vehicle.
== END 2025-09-26 12:36 | disposition home or self-care (01) | DRG 439 ==
LOC: ED 10:52 → AC 14:17 → ICU 15:09 → AC 19:03 → ICU 09-24 11:46
PROVIDERS: Internal Medicine; Admitting Provider Internal Medicine; Emergency Provider Family Medicine; PCP Family Medicine; Referring Provider Family Medicine; Visit Provider Internal Medicine
DX: K85.20 Alcohol induced acute pancreatitis without necrosis or infection (principal); I48.20 Chronic atrial fibrillation, unspecified; F10.91 Alcohol use, unspecified, in remission; J44.9 Chronic obstructive pulmonary disease, unspecified; E78.5 Hyperlipidemia, unspecified; M19.90 Unspecified osteoarthritis, unspecified site; I10 Essential (primary) hypertension; M25.519 Pain in unspecified shoulder; M54.9 Dorsalgia, unspecified; R10.30 Lower abdominal pain, unspecified; E11.9 Type 2 diabetes mellitus without complications; N40.0 Benign prostatic hyperplasia without lower urinary tract symptoms; Z87.891 Personal history of nicotine dependence; Z79.52 Long term (current) use of systemic steroids; Z79.84 Long term (current) use of oral hypoglycemic drugs; Z79.51 Long term (current) use of inhaled steroids; Z88.8 Allergy status to other drugs, medicaments and biological substances
CPT/HCPCS: 36415; 51798; 71275; 74174; 74176; 80053; 82550; 83036; 83690; 83735; 83880; 84484; 85025; 85651; 86140; 93005; 94640; 94760; 94762; 96374; 96375; 99284; J1171; J1644; J1885; J2405; J2765; J7030; J7120; Q9967

== ENCOUNTER 2025-09-27 17:01 | Inpatient (IN) | payer MEDICARE, SELFPAY ==
[2025-09-23 17:04] VITALS: BMI 27.2
[2025-09-27] VITALS (14 sets, daily range): BP systolic 127–193; BP diastolic 68–115; PULSE 80–176; RESP 12–27; TEMP 36.8; O2SAT 93–99; BMI 29.0
--- NOTE | 2025-09-27 17:22 | DI.RAD.S_ITS ---
PROCEDURE: XR ACUTE ABDOMEN SERIES INDICATIONS: bloating, gas TECHNIQUE: One view chest and two views of the abdomen were acquired. COMPARISON: None. FINDINGS: Surgical changes and devices: None. Chest: Lungs are clear. Heart size is normal. No pleural effusions. No pneumoperitoneum. Abdomen: Bowel gas pattern is normal. No suspicious calcifications. Visualized solid organ contours appear normal. Bones: No suspicious bony lesions. IMPRESSION: No acute abnormality. Dictated by: Buster Trinidad M.D. on 09/27/2025 at 19:21 Approved by: Buster Trinidad M.D. on 09/27/2025 at 19:22
[2025-09-27 17:58] LABS: Add Manual Diff / Slide Review NO; Hematocrit 41.9 % (41-53); Hemoglobin 14.5 g/dL (13.5-17.5); Lymphocytes Absolute Auto 1000 /uL (1100-4500); Mean Corpuscular HGB Conc 34.5 % (30-36); Mean Corpuscular Hemoglobin 28.9 PG (26-34); Mean Corpuscular Volume 83.6 fL (80-100); Platelet Count 281 X10^3/uL (150-400)
[2025-09-27 18:15] LABS: Lactate (Lactic Acid) 1.4 mmol/L (0.7-2.1)
[2025-09-27 18:16] LABS: Alanine Aminotransferase 22 IU/L (<50); Albumin 4.1 g/dL (3.5-5.0); Albumin Globulin Ratio 1.2 (1.0-2.8); Alkaline Phosphatase 58 U/L (38-126); Blood Urea Nitrogen 9 mg/dL (9-20); Calcium 9.2 mg/dL (8.4-10.2); Carbon Dioxide 23 mmol/L (22-32); Chloride 101 mmol/L (98-107); Creatine Kinase 80 U/L (55-170); Estimated Glomerular Filt Rate > 60 mL/min (>60); Globulin 3.4 g/dL (1.7-4.1); Glucose 146 mg/dL (70-99); HEMOLYSIS 22 (0-50); Lipase 196 U/L (23-300); Potassium 3.6 mmol/L (3.4-5.1); Sodium 136 mmol/L (137-145); Total Protein 7.5 g/dL (6.3-8.2)
[2025-09-27 18:28] LABS: NT-proBNP (BNP-Adult 18+) 832 pg/mL (<125); Troponin I < 0.012 ng/mL (0.01-0.034)
--- NOTE | 2025-09-27 19:25 | EKG_ITS ---
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
[2025-09-27] MEDS: ONDANSETRON 4 MG/2 ML INJ IV (19:26)
[2025-09-27] MEDS: ASPIRIN 81 MG CHEW TAB 324 MG PO (19:27)
--- NOTE | 2025-09-27 19:40 | ED.GENADULT ---
HPI - General Adult General Chief complaint: Abdominal Pain Stated complaint: pcp ref/ chest pain/shoulder pain Time Seen by Provider: 09/27/25 17:22 Source: patient Mode of arrival: Ambulatory History of Present Illness HPI narrative: 70-year-old gentleman with a history of being free from heavy drinking for the last 3 years, chronic atrial fibrillation post cardiac ablation not anticoagulated who was discharged yesterday from the hospital with a diagnosis of acute pancreatitis presents today complaining that sitting hurts, all of his large joints shoulder/hips/pelvis or hurting, nausea with significant dizziness, he is gassy, bloated, worsening reflux, persistent belching. He has continued with a clear liquid diet at home and is concerned that he is worsening. Related Data Home Medications ?Medication ?Instructions ?Recorded ?Confirmed ipratropium bromide 21 mcg (0.03 2 spray intranasal BID-TID PRN 02/04/25 08/12/25 %) nasal spray tamsulosin 0.4 mg capsule 0.4 mg PO ONCE PM 02/04/25 09/23/25 amlodipine 5 mg tablet 5 mg PO DAILY 02/17/25 02/17/25 ipratropium bromide 42 mcg (0.06 2 spray intranasal 3XD PRN 02/17/25 08/12/25 %) nasal spray congestion Previous Rx's ?Medication ?Instructions ?Recorded ipratropium bromide 0.02 % 2.5 ml inhalation QID shortness of 02/17/25 solution for inhalation breath or wheezing #150 mL metformin 750 mg tablet,extended 750 mg PO QAM #90 tabs 07/01/25 release 24 hr rosuvastatin 20 mg tablet 20 mg PO DAILY #90 tabs 08/12/25 budesonide 1 mg/2 mL suspension 0.5 mg inhalation BID #60 mL 09/08/25 for nebulization losartan 100 1 tab PO DAILY #90 tabs 09/10/25 mg-hydrochlorothiazide 25 mg tablet Allergies Allergy/AdvReac Type Severity Reaction Status Date / Time chlorhexidine Allergy Hives Verified 09/23/25 10:34 Review of Systems Review of Systems Narrative: Pertinent positive and negative findings as per HPI Patient History Medical History Hypertension Chronic rhinosinusitis with multiple nasal polyps Nasal polyps Recurrent sinus infections Sinus congestion Seasonal allergies Asthma Sleep apnea (~2012) COPD (chronic obstructive pulmonary disease) (~1999) Mumps Chicken pox (~1964) Colon polyps (~2014) Surgical History Anesthesia History of back surgery (~2009) History of tonsillectomy (~1962) Status post Mohs surgery (~2017) History of cardiac radiofrequency ablation (~2020) Social History household members: spouse Alcohol type: beer Exam Initial Vital Signs Initial Vital Signs: Vital Signs Temperature 98.3 F 09/27/25 17:11 Pulse Rate 80 09/27/25 17:11 Respiratory Rate 16 09/27/25 17:11 Blood Pressure 133/69 09/27/25 17:11 Pulse Oximetry 96 09/27/25 17:11 Oxygen Delivery Method Room Air 09/27/25 17:11 General: Somewhat pale appears uncomfortable but is not in significant distress. Able to give a complete and coherent history. Well-nourished well-developed HEENT: Moist mucous membranes, normal sclera with reactive pupils, Respiratory: Lungs are clear to auscultation, no wheezing no rales no rhonchi. Full and symmetrical air movement Cardiac: Rate of 80, no murmurs appreciated Abdomen: Slightly distended, no rebound or guarding Skin: Warm and dry, no rashes Neurologic: Grossly neurologically intact with no obvious asymmetries or abnormalities Extremities: No trauma, well perfused, no lower extremity edema Psych: Cooperative, appropriate insight and affect Course Orders Ordered: ED Orders 09/27/25 17:22 XR acute abdomen series Stat 09/27/25 17:50 BNP [NT-proBNP (BNP-Adult 18+)] Stat CBC Auto Diff [Complete Blood Count AUTO DIFF] Stat CMP [Comprehensive Metabolic Panel] Stat Lactate (Lactic Acid) Stat Lipase Stat Troponin & CK Cardiac Panel Stat 09/27/25 19:23 EKG-12 Lead Stat 09/27/25 19:35 Troponin I Stat 09/27/25 22:48 EKG-12 Lead Stat Diltiazem HCl 125 mg/ Sodium (Chloride) 125 mls @ 5 mls/hr IV TITRATE [place]; Protocol Last Titration: 09/27/25 22:15 Dose: 15 mg/hr, 15 mls/hr Documented By: Titration: 09/27/25 20:49 Dose: 10 mg/hr, 10 mls/hr Documented By: Admin: 09/27/25 19:53 Dose: 5 mg/hr, 5 mls/hr Documented By: FLIP Discontinued Medications Aspirin (Aspirin 81 Mg Chew Tab) 324 mg PO NOW ONE Stop: 09/27/25 19:24 Last Admin: 09/27/25 19:27 Dose: 324 mg Documented By: FLIP Sodium Chloride (Normal Saline 0.9%) 1,000 mls @ 1,000 mls/hr IV BOLUS ONE Stop: 09/27/25 20:41 Last Infusion: 09/27/25 20:47 Dose: Infused Documented By: Admin: 09/27/25 19:46 Dose: 1,000 mls/hr Documented By: FLIP Ondansetron HCl (Ondansetron 4 Mg/2 Ml Inj) 4 mg IV NOW ONE Stop: 09/27/25 19:24 Last Admin: 09/27/25 19:26 Dose: 4 mg Documented By: FLIP Vital Signs Vital signs: Vital Signs - 8 hr 09/27/25 17:11 09/27/25 19:19 09/27/25 19:19 Temperature 98.3 F Pulse Rate 80 176 H Respiratory Rate 16 Blood Pressure 133/69 154/97 H Pulse Oximetry 96 94 Oxygen Delivery Method Room Air Room Air 09/27/25 19:30 09/27/25 19:30 09/27/25 19:54 Temperature Pulse Rate 96 H 88 Respiratory Rate 13 20 Blood Pressure 155/74 H Pulse Oximetry 98 98 Oxygen Delivery Method Room Air 09/27/25 19:54 09/27/25 20:00 09/27/25 20:01 Temperature Pulse Rate 83 87 Respiratory Rate 16 19 Blood Pressure 161/68 H Pulse Oximetry 99 99 Oxygen Delivery Method Room Air Room Air 09/27/25 20:01 09/27/25 20:30 09/27/25 20:31 Temperature Pulse Rate 86 87 Respiratory Rate 19 20 Blood Pressure 127/70 Pulse Oximetry 97 96 Oxygen Delivery Method Room Air Room Air 09/27/25 20:31 09/27/25 21:00 09/27/25 21:00 Temperature Pulse Rate 97 H Respiratory Rate 16 Blood Pressure 154/74 H 166/78 H Pulse Oximetry 96 Oxygen Delivery Method Room Air 09/27/25 21:30 09/27/25 22:00 09/27/25 22:06 Temperature Pulse Rate 98 H 97 H 94 H Respiratory Rate 27 H 15 12 Blood Pressure 193/93 H 161/115 H 149/74 H Pulse Oximetry 98 97 93 Oxygen Delivery Method Room Air Room Air Room Air Medical Decision Making Lab Data 09/27/25 17:50 09/27/25 17:50 Labs: Lab Results 09/27/25 09/27/25 Range/Units 17:50 19:35 WBC 12.6 H (4.5-11.0) X10^3/uL RBC 5.01 (4.5-5.9) X10^6/uL Hgb 14.5 (13.5-17.5) g/dL Hct 41.9 (41-53) % MCV 83.6 (80-100) fL MCH 28.9 (26-34) PG MCHC 34.5 (30-36) % RDW 12.8 (11.6-14.8) % Plt Count 281 (150-400) X10^3/uL Neut % (Auto) 77.2 H (50-75) % Lymph % (Auto) 8.1 L (25-40) % [place] % (Auto) 7.4 (3-14) % Eos % (Auto) 6.8 H (2-4) % Baso % (Auto) 0.5 (0-2) % Neut # (Auto) 9700 H (7072-6388) /uL Lymph # (Auto) 1000 L (0902-0675) /uL [place] # (Auto) 900 (0-900) /uL Eos # (Auto) 900 H (0-450) /uL Baso # (Auto) 100 (0-100) /uL Sodium 136 L (137-145) mmol/L Potassium 3.6 (3.4-5.1) mmol/L Chloride 101 (98-107) mmol/L Carbon Dioxide 23 (22-32) mmol/L BUN 9 (9-20) mg/dL Creatinine 0.70 (0.66-1.25) mg/dL Estimated GFR > 60 (>60) mL/min BUN/Creatinine Ratio 12.9 (6-22) Glucose 146 H (70-99) mg/dL Lactate 1.4 (0.7-2.1) mmol/L Calcium 9.2 (8.4-10.2) mg/dL Total Bilirubin 1.0 (0.2-1.3) mg/dL AST 30 (17-59) IU/L ALT 22 (<50) IU/L Alkaline Phosphatase 58 (38-126) U/L Total Creatine Kinase 80 (55-170) U/L Troponin I < 0.012 < 0.012 (0.01-0.034) ng/mL NT-Pro-B Natriuret Pep 832 H (<125) pg/mL Total Protein 7.5 (6.3-8.2) g/dL Albumin 4.1 (3.5-5.0) g/dL Globulin 3.4 (1.7-4.1) g/dL Albumin/Globulin Ratio 1.2 (1.0-2.8) Lipase 196 D (23-300) U/L MDM Narrative Medical decision making narrative: CC: Large joint aching, belching, reflux, bloating Complicating co-morbidities: Discharged yesterday with pancreatitis, hypertension, hyperlipidemia discussion of the joint aching addressed with his discharge yesterday Data collected from: patient Medical records reviewed: Discharge summary from yesterday reviewed Differential considered: Recurrent/not yet resolved pancreatitis, secondary infection, constipation Exam documented above, pertinent findings include: Belly is slightly tympanitic but he does not have an acute surgical abdomen Lab Test results independently reviewed as above. Pertinent findings: CBC shows white count at 12.6 which is up from yesterday with slight increase in neutrophils as well. No anemia Chemistries are unremarkable. ProBNP is minimally elevated at 832 Initial and repeat troponin are undetectable Lipase is back to normal Independently reviewed EKG: On arrival patient was in sinus rhythm at a rate of 80. Shortly after arrival he went into a narrow complex arrhythmia. EKG shows rated 170, computer interpretation is that of SVT possibility of rapid atrial flutter is also considered. Lateral ST changes. With Trendelenburg position heart rate slows and he appears to be going in and out of this narrow complex tachycardia and sinus rhythm. Imaging studies independently reviewed: Acute abdomen series obtained. Normal chest x-ray no signs of bowel obstruction but he does have a significant amount of gas throughout his abdomen. More an ileus type picture rather than an obstruction. Consultations: Dr Salmeron, cardiology was consulted. Agrees with continuing the diltiazem drip. We will consult in the morning Treatments: Aspirin fluid bolus, Zofran IV, diltiazem bolus and diltiazem drip Re-evaluations: Shortly after arrival patient had an episode of narrow complex tachycardia with his incomplete right bundle branch appreciated. Improved with diltiazem bolus and currently on a diltiazem drip. Discussion: 70-year-old gentleman with bloating, gassy, worsening reflux increasing dizziness and increasing large joint pain. Pancreatitis seems to have resolved but he continues to have significant nausea and vomiting. There was no evidence of acute coronary syndrome but he is having episodes of rapid narrow complex rapid rhythm. It will be brief and then returned to more rate controlled atrial fibrillation. He does note that he has been having episodes of rapid heart rate with exertion such as mowing the lawn, he states he has to stop 3 or 4 times while mowing the lawn, he notes that it is almost always consistent if he goes up stairs or up a hill. Not associated with shortness of breath or pain simply the rapid rhythm. There was no sign of acute coronary syndrome, I am not seeing obvious signs or symptoms of infection and his lipase is back down to normal. This distention may simply be ileus related to recent pancreatitis with recurrent episodes of atrial fibrillation with rapid ventricular response. We will continue the diltiazem drip, discussed with the hospitalist service we will be admitted to the ICU. Considered repeating a CT scan however with 1 done less than 48 hours ago and x-ray today suggesting normal bowel pattern simply increased gas I am not sure that a CT scan is going to add significantly to his overall diagnostic picture. Discharge Plan Departure Patient Disposition: Admitted As Inpatient Clinical Impression: Atrial fibrillation with rapid ventricular response, Abdominal bloating with cramps, Nausea & vomiting
[2025-09-27] MEDS: SODIUM CHLORIDE 0.9% 1,000 ML 1000 ML IV (19:46)
--- NOTE | 2025-09-27 20:00 | PC.NURSE ---
Pt brought to exam room and placed on pulse ox and blood pressure monitors by biomedical technician. When RN enters room noted heart rate 160-170's. Placed on personnel monitor at this time and noted suspected SVT. Dr. Ravi made aware, stat EKG ordered and completed confirming SVT. Multiple different vagal maneuvers attempted with some short periods of conversion and then back into SVT. Pt states he is now noting the symptoms since he is aware when he is going in and out of rhythm. States increased tight chest pain stretching across from shoulder to shoulder, increased nausea and feeling of heartburn and belching. When heart rate in normal rhythm the before mentioned symptoms are gone or notably reduced. Pt placed in trendelenburg during SVT episode while ordered meds being prepared. Pt remained at a stable rate from that moment on. Once Diltiazem infusion started pt has since remained at a normal rate 70-80's, with all other vs stable.
[2025-09-27 20:05] LABS: Troponin I < 0.012 ng/mL (0.01-0.034)
--- NOTE | 2025-09-27 20:07 | PC.NURSE ---
Pt placed in normal position in ED stretcher at this time. Heart rate remains 70's.
--- NOTE | 2025-09-27 20:55 | PC.NURSE ---
Pt back in SVT at this time. Increased diltiazem rate at this time and placed pt back in trendelenburg. Pt converts back to rate 70's but pt becomes nauseous and attempting to vomit. Pt placed back in normal position and goes back into SVT. Dr. Cartwright aware.
--- NOTE | 2025-09-27 21:34 | PC.NURSE ---
Emesis x 1
--- NOTE | 2025-09-27 21:47 | PC.NURSE ---
Emesis x 1
--- NOTE | 2025-09-27 22:48 | EKG_ITS ---
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
[2025-09-27] MEDS: METOCLOPRAMIDE 10 MG/2 ML INJ IV (23:35)
[2025-09-27] MEDS: SODIUM CHLORIDE 0.9% 1,000 ML 150 ML IV (23:35)
[2025-09-27] MEDS: PANTOPRAZOLE 40 MG VIAL IV (23:35)
[2025-09-28] VITALS (42 sets, daily range): BP systolic 106–184; BP diastolic 55–96; PULSE 59–171; RESP 8–49; TEMP 37; O2SAT 86–100; BMI 29.0
--- NOTE | 2025-09-28 00:40 | PC.NURSE ---
Pt ambulatory to restroom with walker and without difficulty.Pt changed in to hospital gown and evening ADL's completed. Pt placed in recliner instead of ED stretcher at this time for pt comfort. Pt reconnected to cardiac, resp, blood pressure, and pulse ox monitors with alarms on and audible. VS stable at this time. Continued plan of care discussed. No requests or concerns at this time. Call light within reach. remains at bedside.
--- NOTE | 2025-09-28 01:04 | PC.NURSE ---
leaving facility at this time to get some rest at a friends house. Confirmed contact information is correct in pt chart.
--- NOTE | 2025-09-28 01:16 | PC.NURSE ---
Pt ambulatory to restroom with walker and without difficulty. Pt changed into hospital gown and evening ADL's completed. Pt placed in recliner at this time instead of hospital bedfor pt comfort. Pt reconnected to cardiac, resp, blood pressure, and pulse ox monitors with alarms on and audible. VS stable at this time. Continued plan of care discussed at this time. No requests or concerns at this time. Call light within reach. remains at bedside.
--- NOTE | 2025-09-28 03:00 | PC.NURSE ---
Pt awake and asking for water. Provided as requested. Denies nausea at this time. No vomiting noted. No other requests or concerns at this time. Pt remains connected to blood pressure, pulse ox, cardiac, and resp monitors with alarms on and audible. VS stable at this time. Pt does continue to have small runs of elevated heart rate most lasting less than 30 seconds. Call light within reach.
--- NOTE | 2025-09-28 04:47 | PC.NURSE ---
Pt awake and alert lying in ED recliner, engages appropriately with RN upon entry into exam room. No distress noted at this time. Pt with no requests or concerns at this time. Pt remains connected to cardiac, reps, blood pressure, and pulse ox monitors with alarms on and audible. VS stable at this time. Call light within reach.
--- NOTE | 2025-09-28 05:08 | P.HP_ITS ---
History of Present Illness History of Present Illness Date Patient Seen: 09/28/25 Time Patient Seen: 00:12 Chief complaint: pcp ref/ chest pain/shoulder pain Narrative: 70-year-old male with past medical history of chronic atrial fibrillation status post cardiac ablation not on anticoagulation, BPH, hypertension, pak-yaabvpv-eftmkwjej diabetes and hyperlipidemia presents with abdominal pain. Of note the patient recently was discharged yesterday from the hospital for acute pancreatitis. The patient states that when he got home he continued to have some nausea with abdominal bloating and pain. The patient did have some persistent belching but was any fever, chills, diarrhea, chest pain or shortness of breath. The patient did experience a palpitation. The patient returns to the ER as he concerned if his pancreatitis is still present. In the emergency room, the patient was hemodynamically stable. Labs shows normal lipase today. Troponin x 2. WBC is 12,000 and other labs were relatively benign. The patient however was in atrial fibrillation/flutter with RVR with heart rate in the 170s. The patient did require IV diltiazem drip. Of note the patient had an x-ray today suggesting normal bowel pattern. Dr. Salmeron from cardiology was also consulted and will see the patient in the morning. The patient stated IV fluid, IV Zofran, aspirin. [facility] Medical History Hypertension Chronic rhinosinusitis with multiple nasal polyps Nasal polyps Recurrent sinus infections Sinus congestion Seasonal allergies Asthma Sleep apnea (~2012) COPD (chronic obstructive pulmonary disease) (~1999) Mumps Chicken pox (~1964) Colon polyps (~2014) Surgical History Anesthesia History of back surgery (~2009) History of tonsillectomy (~1962) Status post Mohs surgery (~2017) History of cardiac radiofrequency ablation (~2020) Social History household members: spouse Meds Home Medications and Allergies Home Medications ?Medication ?Instructions ?Recorded ?Confirmed ?Type ipratropium bromide 21 mcg (0.03 2 spray intranasal BI D-TID PRN 02/04/25 08/12/25 History %) nasal spray tamsulosin 0.4 mg capsule 0.4 mg PO ONCE PM 02/04/25 1 11/23/24 History amlodipine 5 mg tablet 5 mg PO DAILY 02/17/2502/17 History ipratropium bromide 0.02 % 2.5 ml inhalation QID short ness of 02/17/25 08/12/25 Rx solution for inhalation breath or wheezing #150 mL ipratropium bromide 42 mcg (0.06 2 spray intranasal 3X D PRN 02/17/25 08/12/25 History %) nasal spray congestion metformin 750 mg tablet,extended 750 mg PO QAM #90 tab s 07/01/25 09/23/25 Rx release 24 hr rosuvastatin 20 mg tablet 20 mg PO DAILY #90 tabs 07/2009/23/25 Rx budesonide 1 mg/2 mL suspension 0.5 mg inhalation BID #60 mL 09/08/25 09/23/25 Rx for nebulization losartan 100 1 tab PO DAILY #90 tabs 08/1909/23/25 Rx mg-hydrochlorothiazide 25 mg tablet Allergies Allergy/AdvReac Type Severity Reaction Status Date / Time chlorhexidine Allergy Hives Verified 09/23/25 10:34 Review of Systems Review of Systems ROS: Yes All systems reviewed with the patient and are negative except as otherwise documented Exam Vital Signs (past 8 hours): - 09/27/25 21:30 09/27/25 22:00 09/27/25 22:06 Pulse Rate 98 H 97 H 94 H Respiratory Rate 27 H 15 12 Blood Pressure 193/93 H 161/115 H 149/74 H Blood Pressure [Left Arm] Pulse Oximetry 98 97 93 Oxygen Delivery Method Room Air Room Air Room Air 09/27/25 22:30 09/27/25 23:30 09/28/25 00:00 Pulse Rate 96 H 91 H 87 Respiratory Rate 13 20 23 Blood Pressure 138/82 167/84 H 184/86 H Blood Pressure [Left Arm] Pulse Oximetry 96 97 98 Oxygen Delivery Method Room Air Room Air Room Air 09/28/25 00:40 09/28/25 01:11 09/28/25 01:30 Pulse Rate 103 H 88 93 H Respiratory Rate 15 13 27 H Blood Pressure 172/96 H Blood Pressure [Left Arm] 150/65 H 123/61 Pulse Oximetry 97 97 93 Oxygen Delivery Method Room Air Room Air Room Air 09/28/25 02:00 09/28/25 03:00 09/28/25 04:00 Pulse Rate 91 H 91 H 95 H Respiratory Rate 26 H 23 25 H Blood Pressure Blood Pressure [Left Arm] 116/56 L 112/62 106/61 Pulse Oximetry 93 95 95 Oxygen Delivery Method Room Air Room Air Room Air Oxygen Delivery Method Room Air Narrative Exam Narrative: Physical Exam: GENERAL: The patient is not in any acute distressed. Awake and alert. HEENT: Nonicteric sclerae, PERRLA, EOMI. Oropharynx clear. Moist mucous membranes. Conjunctivae appear well perfused. HEART:Tachycardia with irreg rhythm without murmurs. No lower extremities edema. LUNGS: Clear to auscultation bilaterally. No wheezing, crackles or rhonchi ABDOMEN: Soft, positive bowel sounds, nontender. SKIN: No rash, no excessive bruising, petechiae, or purpura. NEUROLOGIC: AxO x 3. Cranial nerves II-XII intact without motor/sensory deficit. Objective Labs 09/27/25 17:50 09/27/25 17:50 Labs: Laboratory Results - last 24 hr 09/27/25 09/27/25 17:50 19:35 WBC 12.6 H RBC 5.01 Hgb 14.5 Hct 41.9 MCV 83.6 MCH 28.9 MCHC 34.5 RDW 12.8 Plt Count 281 Neut % (Auto) 77.2 H Lymph % (Auto) 8.1 L [place] % (Auto) 7.4 Eos % (Auto) 6.8 H Baso % (Auto) 0.5 Neut # (Auto) 9700 H Lymph # (Auto) 1000 L [place] # (Auto) 900 Eos # (Auto) 900 H Baso # (Auto) 100 Sodium 136 L Potassium 3.6 Chloride 101 Carbon Dioxide 23 BUN 9 Creatinine 0.70 Estimated GFR > 60 BUN/Creatinine Ratio 12.9 Glucose 146 H Lactate 1.4 Calcium 9.2 Total Bilirubin 1.0 AST 30 ALT 22 Alkaline Phosphatase 58 Total Creatine Kinase 80 Troponin I < 0.012 < 0.012 NT-Pro-B Natriuret Pep 832 H Total Protein 7.5 Albumin 4.1 Globulin 3.4 Albumin/Globulin Ratio 1.2 Lipase 196 D Assessment & Plan Assessment & Plan narrative: Atrial fibrillation with RVR. Admit the patient to ICU. Continue diltiazem drip. Of note the patient is not on anticoagulation and did have an ablation few years ago. The patient also is not on any rate controlling agent at this time as outpatient. Will continue diltiazem drip for rate control. Will defer to anticoagulation per cardiology who will see the patient in the morning. Recent acute pancreatitis. Of note lipase is normal. Will start patient on clear liquid diet and advance as tolerated. Pain control. Xks-zgextzz-werpywvgs diabetes. Monitor glucose with subcu insulin as needed. Hypertension. Monitor blood pressure and resume home medication accordingly. Hyperlipidemia. Resume home statin. DVT prophylaxis heparin subcu. CODE STATUS full code. Disposition likely home in 2 days - As the provider of this telehealth evaluation, requested by the patient's evaluating physician, I attest that I introduced myself to the patient, provided my credentials and determined that telemedicine via a real-time, 2 way interactive audio and video platform is an appropriate and effective means of providing this service. - I reviewed the patient's chart and had a discussion with the member of the patient's treatment team. - The patient and I mutually agreed with continuation of this evaluation via telemedicine. The patient consented for the telemedicine evaluation. - This virtual encounter was taken place from [place] by Dr. Carroll Hernandez. The patient was evaluated at [facility]. The encounter was approximately 35 minutes. The nurse was present during the entire time of the encounter and was able assists with the stethoscope to listen to the patients. Time-Based Coding :: [TOTAL MINUTES] spent with patient and on the chart (including review of chart, obtaining history, exam, reviewing outside data, placing orders, documenting exam and treatment plan, and counseling patient) on [DATE].
--- NOTE | 2025-09-28 06:14 | PC.NURSE ---
Pt requesting to be placed back in a bed at this time. While recliner and bed swap, pt ambulatory to restroom with walker without difficulty. Pt placed back on cardiac, resp, blood pressure, and pulse ox monitors with alarms on and audible. Pt noted to still be going in and out of runs of elevated heart rate up to 180's. Pt denies distress during these events and states he is unaware when his heart rate increases. No further requests or concerns at this time. Call light within reach.
[2025-09-28 06:23] LABS: Add Manual Diff / Slide Review NO; Hematocrit 41.0 % (41-53); Hemoglobin 14.3 g/dL (13.5-17.5); Lymphocytes Absolute Auto 1200 /uL (1100-4500); Mean Corpuscular HGB Conc 35.0 % (30-36); Mean Corpuscular Hemoglobin 29.2 PG (26-34); Mean Corpuscular Volume 83.4 fL (80-100); Platelet Count 302 X10^3/uL (150-400)
[2025-09-28 06:28] LABS: Blood Urea Nitrogen 13 mg/dL (9-20); Calcium 8.6 mg/dL (8.4-10.2); Carbon Dioxide 26 mmol/L (22-32); Chloride 102 mmol/L (98-107); Estimated Glomerular Filt Rate > 60 mL/min (>60); Glucose 132 mg/dL (70-99); HEMOLYSIS < 15 (0-50); Potassium 4.0 mmol/L (3.4-5.1); Sodium 139 mmol/L (137-145)
--- NOTE | 2025-09-28 08:09 | P.CONS_ITS ---
History of Present Illness Consult details Date Patient Seen: 09/28/25 Time Patient Seen: 08:09 Chief complaint: pcp ref/ chest pain/shoulder pain Reason for consult: Paroxysmal atrial fibrillation/ PSVT Narrative: This is a 70-year-old with past medical history of paroxysmal atrial fibrillation status post ablation [place] [address] Darwin Blount at [facility] attention, type 2 diabetes, hyperlipidemia, history of heavy alcohol abuse, history of smoking quit smoking 10 years, systemic polyposis, COPD came to the emergency room with symptoms of nausea vomiting dry heaves. Patient was found to have episodes of paroxysmal atrial fibrillation and SVT. I received a phone call from ER physician regarding the management of this patient. Patient reported no symptoms associated with tachy palpitation episodes. Patient reports no follow-up with a computer technical support specialist and does not take any anticoagulants. He has been experiencing symptoms of recurrent sinusitis, nausea vomiting. Denies any chest pains both testing with exertional. He does have history of shortness of breath brought on by exertion and he takes bronchodilators on a regular basis. Patient states that bronchodilators tends to cause his heart to take off and he has to rest. He is seeing Dr. Jaun M Cisneros for his sinusitis. He also has an appointment with auto transmission mechanic for his surveillance endoscopies. I was asked to see this gentleman for his paroxysmal supraventricular tachycardia and atrial fibrillation. Denies any cardiac work up including echocardiogram and MPI study. Coronary risk factors : smoking, type 2 diabetes, hyperlipidemia. Meds Home Medications and Allergies Home Medications ?Medication ?Instructions ?Recorded ?Confirmed ?Type ipratropium bromide 21 mcg (0.03 2 spray intranasal BI D-TID PRN 02/04/25 08/12/25 History %) nasal spray tamsulosin 0.4 mg capsule 0.4 mg PO ONCE PM 02/04/25 1 11/23/24 History amlodipine 5 mg tablet 5 mg PO DAILY 02/17/2502/17 History ipratropium bromide 0.02 % 2.5 ml inhalation QID short ness of 02/17/25 08/12/25 Rx solution for inhalation breath or wheezing #150 mL ipratropium bromide 42 mcg (0.06 2 spray intranasal 3X D PRN 02/17/25 08/12/25 History %) nasal spray congestion metformin 750 mg tablet,extended 750 mg PO QAM #90 tab s 07/01/25 09/23/25 Rx release 24 hr rosuvastatin 20 mg tablet 20 mg PO DAILY #90 tabs 07/2009/23/25 Rx budesonide 1 mg/2 mL suspension 0.5 mg inhalation BID #60 mL 09/08/25 09/23/25 Rx for nebulization losartan 100 1 tab PO DAILY #90 tabs 08/1909/23/25 Rx mg-hydrochlorothiazide 25 mg tablet Allergies Allergy/AdvReac Type Severity Reaction Status Date / Time chlorhexidine Allergy Hives Verified 09/23/25 10:34 Review of Systems Review of Systems ROS: Yes All systems reviewed with the patient and are negative except as otherwise documented Constitutional Constitutional: Reports fatigue and Reports poor appetite ENT Ears, Nose, Mouth, and Throat: Yes nasal congestion, Yes post nasal drip, Yes sinus pain and Yes sinus pressure Comments: snoring Cardiovascular Cardiovascular: Reports dyspnea Respiratory Respiratory: Reports dyspnea Gastrointestinal Gastrointestinal: Reports abdominal pain, Reports belching, Reports bloating, Reports change in bowel habits, Reports nausea and Reports vomiting Integumentary/Breasts Skin/Breast: Reports system reviewed and no additional complaints, except as documented Neurologic Neurologic: Reports system reviewed and no additional complaints, except as documented Endocrine Endocrine: Reports fatigue Exam Vital Signs (past 8 hours): - 09/28/25 00:40 09/28/25 01:11 09/28/25 01:30 Pulse Rate 103 H 88 93 H Respiratory Rate 15 13 27 H Blood Pressure 172/96 H Blood Pressure [Left Arm] 150/65 H 123/61 Pulse Oximetry 97 97 93 Oxygen Delivery Method Room Air Room Air Room Air 09/28/25 02:00 09/28/25 03:00 09/28/25 04:00 Pulse Rate 91 H 91 H 95 H Respiratory Rate 26 H 23 25 H Blood Pressure Blood Pressure [Left Arm] 116/56 L 112/62 106/61 Pulse Oximetry 93 95 95 Oxygen Delivery Method Room Air Room Air Room Air 09/28/25 05:00 09/28/25 06:10 09/28/25 06:53 Pulse Rate 81 171 H 86 Respiratory Rate 12 16 22 Blood Pressure Blood Pressure [Left Arm] 121/56 L 146/63 H Pulse Oximetry 97 96 98 Oxygen Delivery Method Room Air Room Air 09/28/25 07:00 09/28/25 07:00 09/28/25 07:30 Pulse Rate 84 83 Respiratory Rate 21 19 Blood Pressure 138/65 Blood Pressure [Left Arm] Pulse Oximetry 100 97 Oxygen Delivery Method 09/28/25 07:30 09/28/25 08:00 09/28/25 08:00 Pulse Rate 81 Respiratory Rate 23 Blood Pressure 136/63 141/70 H Blood Pressure [Left Arm] Pulse Oximetry 98 Oxygen Delivery Method Oxygen Delivery Method Room Air Const General: cooperative, healthy appearing and well developed Nutritional Appearance: average body habitus and well nourished [facility] Head: normal to inspection Face and sinus: normal facial exam Mouth: oral mucosae normal Eyes General: appearance normal, both eyes and all related structures Neck Neck: normal visual inspection Carotids: normal carotid upstroke and bounding pulses Chest Chest: abnormal inspection of the chest Resp Effort & Inspection: normal respiratory effort and able to speak in complete sentences Auscultation: clear to auscultation bilaterally Cardio Palpation: normal PMI Rate: regular rate Heart Sounds: S1 normal and S2 normal Other: During my examination , several runs of PAF and SVT are noted on the telemetry. Skin General: no rashes or lesions noted Neuro General: patient alert, patient awake and patient oriented x3 Extrem General: normal to inspection Other: No swelling noted. No Objective Labs 09/28/25 06:12 09/28/25 06:12 Labs: Laboratory Results - last 24 hr 09/27/25 09/27/25 09/28/25 17:50 19:35 06:12 WBC 12.6 H 14.7 H RBC 5.01 4.91 Hgb 14.5 14.3 Hct 41.9 41.0 MCV 83.6 83.4 MCH 28.9 29.2 MCHC 34.5 35.0 RDW 12.8 12.9 Plt Count 281 302 Neut % (Auto) 77.2 H 84.0 H Lymph % (Auto) 8.1 L 8.1 L [place] % (Auto) 7.4 6.6 Eos % (Auto) 6.8 H 0.5 L Baso % (Auto) 0.5 0.8 Neut # (Auto) 9700 H 25107 H Lymph # (Auto) 1000 L 1200 [place] # (Auto) 900 1000 H Eos # (Auto) 900 H 100 Baso # (Auto) 100 100 Sodium 136 L 139 Potassium 3.6 4.0 Chloride 101 102 Carbon Dioxide 23 26 BUN 9 13 Creatinine 0.70 0.76 Estimated GFR > 60 > 60 BUN/Creatinine Ratio 12.9 17.1 Glucose 146 H 132 H Lactate 1.4 Calcium 9.2 8.6 Total Bilirubin 1.0 AST 30 ALT 22 Alkaline Phosphatase 58 Total Creatine Kinase 80 Troponin I < 0.012 < 0.012 NT-Pro-B Natriuret Pep 832 H Total Protein 7.5 Albumin 4.1 Globulin 3.4 Albumin/Globulin Ratio 1.2 Lipase 196 D [facility] Medical History Hypertension Chronic rhinosinusitis with multiple nasal polyps Nasal polyps Recurrent sinus infections Sinus congestion Seasonal allergies Asthma Sleep apnea (~2012) COPD (chronic obstructive pulmonary disease) (~1999) Mumps Chicken pox (~1964) Colon polyps (~2014) Surgical History Anesthesia History of back surgery (~2009) History of tonsillectomy (~1962) Status post Mohs surgery (~2017) History of cardiac radiofrequency ablation (~2020) Social History household members: spouse Tobacco & Substance Use Smoking Status: Former smoker Tobacco: How many years used: 40 alcohol intake: current Diet and Exercise Type(s) of exercise: walking frequency: does not exercise Assessment & Plan Assessment and plan (1) Atrial fibrillation with rapid ventricular response: Status: Acute (2) Nausea & vomiting: Qualifiers: Vomiting type: unspecified Qualified Code(s): R11.2 - Nausea with vomiting, unspecified Status: Acute (3) Abdominal bloating with cramps: Status: Acute Plan Sotalol 40mg POBID EKG to measure QTc 12 Lead ekg twice daily Eliquis 5mg PO BID Telemetry Bed Echocardiogram MPI study as an in patient. Diltiazem drip/Sotalol can be stopped Will follow up. Please call if there are any rhythm disturbances. Assessment & Plan narrative: This is a 70-year-old with past medical history of paroxysmal atrial fibrillation status post ablation [place] [address] Darwin Blount at [facility] attention, type 2 diabetes, hyperlipidemia, history of heavy alcohol abuse, history of smoking quit smoking 10 years, systemic polyposis, COPD came to the emergency room with symptoms of nausea vomiting dry heaves. Patient was found to have episodes of paroxysmal atrial fibrillation and SVT. I received a phone call from ER physician regarding the management of this patient. Patient reported no symptoms associated with tachy palpitation episodes and on occassion he feels heart racing after any activity or use of bronchodilators. Patient reports no follow-up with a computer technical support specialist. I was asked to see this gentleman for his paroxysmal supraventricular tachycardia and atrial fibrillation. Denies any cardiac work up including echocardiogram and MPI study. Coronary risk factors : smoking, type 2 diabetes, hyperlipidemia. 1. Paroxysmal atrial fibrillation/paroxysmal supraventricular tachycardia. Patient reports that he had history of paroxysmal atrial fibrillation and underwent ablation in . He has currently not on long-term anticoagulants. He never had a follow-up with a computer technical support specialist at [facility]. He denies having any device-such as Watchman or left atrial occlusion. Patient carries a significant risk of stroke secondary to cardioembolism. Currently he is having runs of paroxysmal atrial fibrillation followed by episodes of normal sinus rhythm at the rate of 80-90 beats per minute. He is on diltiazem drip. Addition of beta segundo is indicated along with the diltiazem drip however I do not know any evidence of structural heart disease or coronary artery disease. Patient also has a history of COPD. I will start him with sotalol 40 mg twice daily to see how he responds to it. He has a CHADS-VASc score is more than 2 and he has a candidate for long-term anticoagulation however he has recent history of pancreatitis, therefore careful consideration is required. CHADS2 Vasc score 2 CVA risk 2.2% per year risk for a cardioembolic stroke. 2. Hypertension: Patient is currently on amlodipine and losartan 3. Type 2 diabetes patient is on metformin 750 mg daily. 4. COPD: Patient is on long-term bronchodilators including be done aside and ipratropium. 5. Leukocytosis: Patient has history of recent pancreatitis his white count is elevated. Possibilities include pancreatitis, pansinusitis, pneumonia with COPD exacerbation. Time-Based Coding :: [TOTAL MINUTES] spent with patient and on the chart (including review of chart, obtaining history, exam, reviewing outside data, placing orders, documenting exam and treatment plan, and counseling patient) on [DATE].
--- NOTE | 2025-09-28 08:49 | DI.ECHO.S_ITS ---
[facility] +---------+ [facility] : : [address] : : [place] : : [id number] : : Phone: [phone] Echocardiogram Report + + :Name: VALORIE BURGOS Study Date: 09/28/2025 Height: 76 in : :[facility] ReadingLocation: Weight: 238 lb : : Gender: Male BSA: 2.4 m2 : :: 1955 Age: 70 yrs BP: 149/67 mmHg: :Reason For Study: ATRIAL FIBRILLATION : :Ordering Physician: SAMMI, : :LAILA Performed By: Rich Hernandez : :Referring: LAILA CHAPA : + + Interpretation Summary Technically difficult study. 1) Normal left ventricular thickness, size, wall motion, and systolic function (EF 65-70%). 2) MIldly enlarged right ventricle with normal function. 3) The left atrium is moderately dilated 4) No significant valvular abnormalities. 5) Compared to the Echo done 06/20/2021, no significant change. Procedure: A two-dimensional transthoracic echocardiogram with color flow and Doppler was performed. A contrast injection of Definity was performed to improve assessment of LV function. The study quality was technically difficult. Comparison is made with the echocardiogram of 06/20/2021. The patient was in atrial fibrillation with heart rates between 67-89 bpm during the exam. Left Ventricle: The left ventricle is normal in size. Left ventricular wall thickness is mild-moderately increased. There is no ventricular septal defect visualized. The ejection fraction is estimated to be 65-70%. There are no focal wall motion abnormalities. Diastolic function could not be accurately assessed due to atrial fibrillation. Right Ventricle: The right ventricle is mildly dilated. The right ventricular systolic function is normal. Atria: The left atrium is moderately dilated. The right atrium is mildly dilated. There is no Doppler evidence for an interatrial shunt. Mitral Valve: The mitral valve is grossly normal. There is trace mitral regurgitation. Aortic Valve: The aortic valve is grossly normal. There is no aortic valve stenosis. There is trace aortic regurgitation. Tricuspid Valve: The tricuspid valve is not well visualized, but is grossly normal. No tricuspid regurgitation. Pulmonic Valve: The pulmonic valve is not well visualized. There is no pulmonic valvular regurgitation. Great Vessels: The aortic root is mildly dilated. The ascending aorta could not be visualized. The pulmonary is not well visualized. The IVC is dilated (diameter is greater than 2.1 cm) yet it collapses greater than 50% with a sniff. This suggests a right atrial pressure of 8 mm Hg. Pericardium/ Pleura There is no pericardial effusion. There is no pleural effusion. MMode/2D Measurements & Calculations LVIDd: 5.4 cm LVOT diam: 3.9 cm LVIDs: 2.6 cm Ao root diam: 3.2 cm FS: 51.2 % EPSS: 0.87 cm IVSd: 1.3 cm LVPWd: 1.4 cm LV nash. diameter/BSA (cm/m^2): 2.3 LV sys. diameter/BSA (cm/m^2): 1.1 LA A2 area: 29.4 cm2 RA long axis: 6.5 cm LA A4 area: 29.7 cm2 RA area: 23.2 cm2 LA length (vol): 7.3 cm RA vol: 70.1 ml LA vol: 101.0 ml RA : 29.4 ml/m2 LA vol index: 42.4 ml/m2 IVC diam: 2.4 cm RVD1 (basal): 4.8 cm RVD2 (mid): 3.2 cm TAPSE: 2.9 cm Doppler Measurements & Calculations Ao V2 max: 222.1 cm/sec LVOT Max Solitario: 119.6 cm/sec Ao V2 mean: 156.5 cm/sec LV V1 max P.7 mmHg Ao max P.7 mmHg LV V1 VTI: 23.3 cm Ao mean P.0 mmHg YUNIOR(I,D): 7.1 cm2 Ao V2 VTI: 38.9 cm YUNIOR(V,D): 6.4 cm2 sev ratio: 0.60 YUNIOR indexed to BSA (cm^2/m^2): 3.0 MV E max solitario: 80.9 cm/sec PA V2 max: 147.5 cm/sec MV A max solitario: 83.5 cm/sec PA V2 mean: 109.9 cm/sec MV E/A: 0.97 PA mean P.2 mmHg Med Peak E' Solitario: 5.1 cm/sec PA pr(Accel): 39.6 mmHg E/E' med: 15.8 Lat Peak E' Solitario: 7.9 cm/sec E/E' lat: 10.3 E/e' average: 13.0 MV dec time: 0.19 sec SV(LVOT): 275.3 ml Reading Physician:12:32 PM
--- NOTE | 2025-09-28 09:11 | PM.HP.1 ---
History of Present Illness History of Present Illness Date Patient Seen: 09/28/25 Chief complaint: pcp ref/ chest pain/shoulder pain Narrative: Summary (night doctor): 70-year-old male with past medical history of chronic atrial fibrillation status post cardiac ablation not on anticoagulation, BPH, hypertension, dzd-oillhql-obrxrtpym diabetes and hyperlipidemia presents with abdominal pain. Of note the patient recently was discharged yesterday from the hospital for acute pancreatitis. The patient states that when he got home he continued to have some nausea with abdominal bloating and pain. The patient did have some persistent belching but was any fever, chills, diarrhea, chest pain or shortness of breath. The patient did experience a palpitation. The patient returns to the ER as he concerned if his pancreatitis is still present. In the emergency room, the patient was hemodynamically stable. Labs shows normal lipase today. Troponin x 2. WBC is 12,000 and other labs were relatively benign. The patient however was in atrial fibrillation/flutter with RVR with heart rate in the 170s. The patient did require IV diltiazem drip. Of note the patient had an x-ray today suggesting normal bowel pattern. Dr. Salmeron from cardiology was also consulted and will see the patient in the morning. The patient stated IV fluid, IV Zofran, aspirin. S: He was feeling better, no palpitations, dyspnea or chest pain. He was currently on a diltiazem drip at 15 mils g per hour with sinus rhythm in the 70s. ROS: All else reviewed and otherwise unremarkable except as noted in the history and physical. O: VSS. NAD, alert and oriented, fluent speech, calm. Normocephalic skull, EOMI, anicteric sclera, symmetric pupils. Oropharynx unremarkable, no droop. Neck supple, midline trachea, no adenopathy. Lungs clear, normal rate and effort. Heart irregular, no murmur gallop or rub. Abdomen is soft, non distended and non tender. Extremities are free of edema. Skin is free of rash or lesions. Joints are not swollen or deformed. Judgment appears to be normal. IMAGING: Chest x-ray: No acute abnormality. September 25 chest, abdomen, pelvis CTA: No acute aortic syndrome. Findings suggestive of duodenitis. 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 Other chronic findings as above. A/P: 1. Atrial fibrillation with RVR. Active. 2. Recent acute pancreatitis. Improved. 3. Puf-sreaike-ldunkjlpw diabetes. Stable. 4. Hypertension. Stable. 5. Hyperlipidemia. Stable. PLAN: -release and technical records clerk consulted, discussed with them. The current plan will be to start sotalol 40 b.i.d., monitor QT interval, and wean diltiazem drip. -we will continue apixaban, for stroke prevention. -advance activity and diet. -monitor for abdominal pain. -exercise stress test prior to discharge for risk stratification. -old records from [facility] regarding coronary angiogram and ablation. MILENA: DVT prophylaxis heparin subcu. CODE STATUS full code. Disposition likely home in 2 days, he requires at least a 2nd midnight of hospital level care. [facility] Medical History Hypertension Chronic rhinosinusitis with multiple nasal polyps Nasal polyps Recurrent sinus infections Sinus congestion Seasonal allergies Asthma Sleep apnea (~2012) COPD (chronic obstructive pulmonary disease) (~1999) Mumps Chicken pox (~1964) Colon polyps (~2014) Surgical History Anesthesia History of back surgery (~2009) History of tonsillectomy (~1962) Status post Mohs surgery (~2017) History of cardiac radiofrequency ablation (~2020) Social History household members: spouse Smoking Status: Former smoker Tobacco: How many years used: 40 alcohol intake: current Type(s) of exercise: walking frequency: does not exercise Meds Home Medications and Allergies Home Medications ?Medication ?Instructions ?Recorded ?Confirmed ?Type ipratropium bromide 21 mcg (0.03 2 spray intranasal BID-TID PRN 02/04/25 09/28/25 History %) nasal spray allergy symptoms tamsulosin 0.4 mg capsule 0.4 mg PO ONCE PM 02/04/25 09/28/25 History amlodipine 5 mg tablet 5 mg PO DAILY 02/17/25 09/28/25 History ipratropium bromide 0.02 % 2.5 ml inhalation QID shortness of 02/17/25 09/28/25 Rx solution for inhalation breath or wheezing #150 mL metformin 750 mg tablet,extended 750 mg PO QAM #90 tabs 07/01/25 09/28/25 Rx release 24 hr rosuvastatin 20 mg tablet 20 mg PO DAILY #90 tabs 08/12/25 09/28/25 Rx budesonide 1 mg/2 mL suspension 0.5 mg inhalation BID #60 mL 09/08/25 09/28/25 Rx for nebulization losartan 100 1 tab PO DAILY #90 tabs 09/10/25 09/28/25 Rx mg-hydrochlorothiazide 25 mg tablet Allergies Allergy/AdvReac Type Severity Reaction Status Date / Time chlorhexidine Allergy Hives Verified 09/23/25 10:34 Exam Vital Signs (past 8 hours): - 09/28/25 01:30 09/28/25 02:00 09/28/25 03:00 Pulse Rate 93 H 91 H 91 H Respiratory Rate 27 H 26 H 23 Blood Pressure Blood Pressure [Left Arm] 123/61 116/56 L 112/62 Pulse Oximetry 93 93 95 Oxygen Delivery Method Room Air Room Air Room Air 09/28/25 04:00 09/28/25 05:00 09/28/25 06:10 Pulse Rate 95 H 81 171 H Respiratory Rate 25 H 12 16 Blood Pressure Blood Pressure [Left Arm] 106/61 121/56 L 146/63 H Pulse Oximetry 95 97 96 Oxygen Delivery Method Room Air Room Air Room Air 09/28/25 06:53 09/28/25 07:00 09/28/25 07:00 Pulse Rate 86 84 Respiratory Rate 22 21 Blood Pressure 138/65 Blood Pressure [Left Arm] Pulse Oximetry 98 100 Oxygen Delivery Method 09/28/25 07:30 09/28/25 07:30 09/28/25 08:00 Pulse Rate 83 81 Respiratory Rate 19 23 Blood Pressure 136/63 Blood Pressure [Left Arm] Pulse Oximetry 97 98 Oxygen Delivery Method 09/28/25 08:00 09/28/25 08:30 09/28/25 08:30 Pulse Rate 85 Respiratory Rate 15 Blood Pressure 141/70 H 150/67 H Blood Pressure [Left Arm] Pulse Oximetry 98 Oxygen Delivery Method Oxygen Delivery Method Room Air Objective ECG Impression: Intervals [place] Rate: 95 P: 33 MT: 162 QRS: 44 QRSD: 110 T: 52 QT: 384 QTc: 482 Interpretive Statements Sinus rhythm with premature atrial complexes Incomplete right bundle branch block Anterior infarct , age undetermined ST & T wave abnormality, consider lateral ischemia Labs 09/28/25 06:12 09/28/25 06:12 Labs: Laboratory Results - last 24 hr 09/27/25 09/27/25 09/28/25 17:50 19:35 06:12 WBC 12.6 H 14.7 H RBC 5.01 4.91 Hgb 14.5 14.3 Hct 41.9 41.0 MCV 83.6 83.4 MCH 28.9 29.2 MCHC 34.5 35.0 RDW 12.8 12.9 Plt Count 281 302 Neut % (Auto) 77.2 H 84.0 H Lymph % (Auto) 8.1 L 8.1 L [place] % (Auto) 7.4 6.6 Eos % (Auto) 6.8 H 0.5 L Baso % (Auto) 0.5 0.8 Neut # (Auto) 9700 H 57835 H Lymph # (Auto) 1000 L 1200 [place] # (Auto) 900 1000 H Eos # (Auto) 900 H 100 Baso # (Auto) 100 100 Sodium 136 L 139 Potassium 3.6 4.0 Chloride 101 102 Carbon Dioxide 23 26 BUN 9 13 Creatinine 0.70 0.76 Estimated GFR > 60 > 60 BUN/Creatinine Ratio 12.9 17.1 Glucose 146 H 132 H Lactate 1.4 Calcium 9.2 8.6 Total Bilirubin 1.0 AST 30 ALT 22 Alkaline Phosphatase 58 Total Creatine Kinase 80 Troponin I < 0.012 < 0.012 NT-Pro-B Natriuret Pep 832 H Total Protein 7.5 Albumin 4.1 Globulin 3.4 Albumin/Globulin Ratio 1.2 Lipase 196 D Assessment & Plan Time-Based Coding :: 35 min spent with patient and on the chart (including review of chart, obtaining history, exam, reviewing outside data, placing orders, documenting exam and treatment plan, and counseling patient) on 09/28. Quality MIPS - Admit I confirm the patient?s Advance Care Plan is present, Code status is documented, Surrogate decision maker is in patient?s record [If Yes, STOP here]: Yes MIPS - Meds 'Current medications' to include all prescriptions, tole-fho-jmaupdh products, herbals, cannabis/cannabidiol products, and vitamin/mineral/dietary (nutritional) supplements. I have utilized all available resources to obtain, update, or review the patient?s current medications. [If Yes, STOP here]: Yes
--- NOTE | 2025-09-28 09:37 | EKG_ITS ---
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
[2025-09-28] MEDS: ACETAMINOPHEN 325 MG TABLET 650 MG PO ×2 (10:40→21:18)
[2025-09-28] MEDS: ATORVASTATIN 20 MG TABLET 40 MG PO (10:40)
[2025-09-28] MEDS: ASPIRIN EC 81 MG TABLET PO (10:40)
[2025-09-28] MEDS: APIXABAN 5 MG TABLET PO ×2 (10:41→20:12)
[2025-09-28] MEDS: SOTALOL 80 MG TABLET 40 MG PO ×2 (12:17→20:12)
[2025-09-28] MEDS: SODIUM CHLORIDE 0.9% 1,000 ML 150 ML IV ×2 (13:22→20:12)
--- NOTE | 2025-09-28 19:40 | PC.NURSE ---
Admit Note Pt arrived to room 230 from ER at approx 0900. Diltiazem gtt infusing at 15 mg/hr. SR in BBB with frequent PACs. Pt alert and oriented x3. Denies pain on arrival. Dr. Salmeron consulted and ordered sotalol which was given after QTC confirmed (see order in jan). Rate goal on diltiazem gtt 70-90s per Dr. Salmeron. Diltiazem gtt weaned to off at 1245, HR in the 60s SR with no PACs noted. Increases up to 70s with activity. SBA with 4WW to bathroom. Oriented to room on arrival and to call light/tv/bed controls. Own water bottle, 4WW, shoes, clothing in room.
[2025-09-28] MEDS: IPRATROPIUM 0.5 MG/2.5 ML NEB INH (20:00)
[2025-09-28] MEDS: BUDESONIDE 0.5 MG/2 ML NEB INH (20:00)
[2025-09-28] MEDS: TAMSULOSIN 0.4 MG CAPSULE PO (20:12)
[2025-09-29] VITALS (50 sets, daily range): BP systolic 115–149; BP diastolic 57–90; PULSE 57–82; RESP 12–38; TEMP 36.6–36.7; O2SAT 90–98
[2025-09-29] MEDS: SODIUM CHLORIDE 0.9% 1,000 ML 150 ML IV (02:55)
--- NOTE | 2025-09-29 06:36 | PC.NURSE ---
casino shift manager RN note pt A&Ox4, SB/SR 55-70s, QTc <0.5, c/o mild pain to abd and shoulders, analgesics prn with effect, up to void with 1 assist and walker, meds as ordered, call pineda within reach, care ongoing
--- NOTE | 2025-09-29 08:10 | PM.PN.1 ---
Subjective Subjective Interval history: S: He was in sinus rhythm overnight, we will stop IV fluids today. He denies any palpitations, chest pain, or dyspnea. He was having a lot of his musculoskeletal shoulder pain bilaterally and hip pain. O: VSS NAD, alert and oriented. Fluent speech. Lungs are clear, normal rate and effort. Heart is regular, no murmur gallop or rub. Abdomen is soft, non distended. Extremities are free of edema. IMAGING: Chest x-ray: No acute abnormality. September 25 chest, abdomen, pelvis CTA: No acute aortic syndrome. Findings suggestive of duodenitis. 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 Other chronic findings as above. A/P: 1. Atrial fibrillation with RVR. Active. 2. Recent acute pancreatitis. Improved. 3. Mkd-gdwarps-kocymclpc diabetes. Stable. 4. Hypertension. Stable. 5. Hyperlipidemia. Stable. PLAN: -network systems integrator consulted, discussed with them. The current plan will be to start sotalol 40 b.i.d., monitor QT interval, and wean diltiazem drip. -we will continue apixaban, for stroke prevention. -advance activity and diet. -monitor for abdominal pain. -exercise stress test prior to discharge for risk stratification. -old records from [facility] regarding coronary angiogram and ablation. -stop IV fluids. MILENA: 09/30-. DVT prophylaxis heparin subcu. CODE STATUS full code. Disposition likely home in 2 days, he requires at least a 2nd midnight of hospital level care. Exam Vital Signs (past 8 hours): - 09/29/25 00:30 09/29/25 01:00 09/29/25 01:00 Pulse Rate 60 58 L Respiratory Rate 16 18 Blood Pressure 121/64 Pulse Oximetry 93 93 09/29/25 01:30 09/29/25 02:00 09/29/25 02:00 Pulse Rate 58 L 59 L Respiratory Rate 23 23 Blood Pressure 130/59 L Pulse Oximetry 90 L 92 09/29/25 02:30 09/29/25 03:00 09/29/25 03:00 Pulse Rate 64 59 L Respiratory Rate 17 15 Blood Pressure 147/67 H Pulse Oximetry 98 98 09/29/25 03:30 09/29/25 04:00 09/29/25 04:00 Pulse Rate 59 L 60 Respiratory Rate 25 H 24 Blood Pressure 115/60 Pulse Oximetry 94 92 09/29/25 04:30 09/29/25 05:00 09/29/25 05:00 Pulse Rate 57 L 60 Respiratory Rate 22 23 Blood Pressure 118/59 L Pulse Oximetry 92 94 09/29/25 05:30 09/29/25 06:00 09/29/25 06:00 Pulse Rate 57 L 69 Respiratory Rate 25 H 15 Blood Pressure 137/90 Pulse Oximetry 91 96 09/29/25 06:30 Pulse Rate 64 Respiratory Rate 22 Blood Pressure Pulse Oximetry 96 Oxygen Delivery Method Room Air Objective Labs 09/28/25 06:12 09/28/25 06:12 [facility] Medical History Hypertension Chronic rhinosinusitis with multiple nasal polyps Nasal polyps Recurrent sinus infections Sinus congestion Seasonal allergies Asthma Sleep apnea (~2012) COPD (chronic obstructive pulmonary disease) (~1999) Mumps Chicken pox (~1965) Colon polyps (~2014) Surgical History Anesthesia History of back surgery (~2009) History of tonsillectomy (~1962) Status post Mohs surgery (~2017) History of cardiac radiofrequency ablation (~2020) Social History household members: spouse Smoking Status: Former smoker Tobacco: How many years used: 40 alcohol intake: current Type(s) of exercise: walking frequency: does not exercise Assessment & Plan Time-Based Coding :: [TOTAL MINUTES] spent with patient and on the chart (including review of chart, obtaining history, exam, reviewing outside data, placing orders, documenting exam and treatment plan, and counseling patient) on [DATE]. Quality VTE Deep Vein Thrombosis/Pulmonary Embolism Present on Admission: No
[2025-09-29] MEDS: IPRATROPIUM 0.5 MG/2.5 ML NEB INH ×3 (08:45→19:31)
[2025-09-29] MEDS: BUDESONIDE 0.5 MG/2 ML NEB INH ×2 (08:45→19:31)
[2025-09-29] MEDS: ATORVASTATIN 20 MG TABLET 40 MG PO (09:06)
[2025-09-29] MEDS: APIXABAN 5 MG TABLET PO ×2 (09:06→20:22)
[2025-09-29] MEDS: SOTALOL 80 MG TABLET 40 MG PO ×2 (09:06→20:22)
[2025-09-29] MEDS: ASPIRIN EC 81 MG TABLET PO (09:08)
[2025-09-29] MEDS: methylPREDNISolone succ 40 MG/ML VIAL IV (09:20)
--- NOTE | 2025-09-29 10:01 | P.PN_ITS ---
Subjective Subjective Date Patient Seen: 09/29/25 Time Patient Seen: 10:01 Interval history: This is a 70-year-old with past medical history of paroxysmal atrial fibrillation status post ablation [place] [address] Darwin Blount at [facility] attention, type 2 diabetes, hyperlipidemia, history of heavy alcohol abuse, history of smoking quit smoking 10 years, systemic polyposis, COPD came to the emergency room with symptoms of nausea vomiting dry heaves. Patient was found to have episodes of paroxysmal atrial fibrillation and SVT. Patient is maintaining sinus rhythm on sotalol 40 mg twice daily. He was started on anticoagulants apixaban. No cardiac issues reported diltiazem drip was discontinued. Exam Vital Signs (past 8 hours): - 09/29/25 02:30 09/29/25 03:00 09/29/25 03:00 Pulse Rate 64 59 L Respiratory Rate 17 15 Blood Pressure 147/67 H Pulse Oximetry 98 98 Oxygen Delivery Method 09/29/25 03:30 09/29/25 04:00 09/29/25 04:00 Pulse Rate 59 L 60 Respiratory Rate 25 H 24 Blood Pressure 115/60 Pulse Oximetry 94 92 Oxygen Delivery Method 09/29/25 04:30 09/29/25 05:00 09/29/25 05:00 Pulse Rate 57 L 60 Respiratory Rate 22 23 Blood Pressure 118/59 L Pulse Oximetry 92 94 Oxygen Delivery Method 09/29/25 05:30 09/29/25 06:00 09/29/25 06:00 Pulse Rate 57 L 69 Respiratory Rate 25 H 15 Blood Pressure 137/90 Pulse Oximetry 91 96 Oxygen Delivery Method 09/29/25 06:30 09/29/25 07:00 09/29/25 07:00 Pulse Rate 64 62 Respiratory Rate 22 12 Blood Pressure 146/70 H Pulse Oximetry 96 95 Oxygen Delivery Method 09/29/25 07:30 09/29/25 08:00 09/29/25 08:00 Pulse Rate 60 63 Respiratory Rate 15 15 Blood Pressure 149/70 H Pulse Oximetry 97 97 Oxygen Delivery Method 09/29/25 08:30 09/29/25 08:45 09/29/25 09:00 Pulse Rate 65 68 Respiratory Rate 27 H 16 Blood Pressure 130/62 Pulse Oximetry 97 98 Oxygen Delivery Method Room Air 09/29/25 09:00 Pulse Rate 67 Respiratory Rate 22 Blood Pressure Pulse Oximetry 96 Oxygen Delivery Method Oxygen Delivery Method Room Air Narrative Exam Narrative: Exam is essentially unchanged from yesterday. Const General: cooperative, healthy appearing and comfortable HENMT Head: normal to inspection Eyes General: appearance normal, both eyes and all related structures Neck Neck: normal visual inspection Chest Chest: normal inspection of the chest Resp Effort & Inspection: normal respiratory effort and able to speak in complete sentences Auscultation: clear to auscultation bilaterally Cardio Palpation: normal PMI Rate: regular rate Rhythm: regular rhythm GI Inspection: normal to inspection Skin General: no rashes or lesions noted Neuro General: patient alert, patient awake and patient oriented x3 Extrem General: normal to inspection Other: Left shoulder pain Objective Labs 09/28/25 06:12 09/28/25 06:12 [facility] Medical History Hypertension Chronic rhinosinusitis with multiple nasal polyps Nasal polyps Recurrent sinus infections Sinus congestion Seasonal allergies Asthma Sleep apnea (~2012) COPD (chronic obstructive pulmonary disease) (~1999) Mumps Chicken pox (~1965) Colon polyps (~2014) Surgical History Anesthesia History of back surgery (~2009) History of tonsillectomy (~1962) Status post Mohs surgery (~2017) History of cardiac radiofrequency ablation (~2020) Social History household members: spouse Smoking Status: Former smoker Tobacco: How many years used: 40 alcohol intake: current Type(s) of exercise: walking frequency: does not exercise Assessment & Plan Assessment and plan (1) Atrial fibrillation with rapid ventricular response: Status: Acute (2) Abdominal bloating with cramps: Status: Acute (3) Sleep apnea: Qualifiers: Sleep apnea type: unspecified type Qualified Code(s): G47.30 - Sleep apnea, unspecified Status: Acute Plan Patient can be discharged from a cardiac standpoint. I reviewed his echocardiogram Discharged home on sotalol 40 mg twice daily Apixaban 5 mg twice daily Follow-up in the office. His exterior interior specialist was notified. I encouraged the patient to follow up with his EP. If he chooses to see me he will have to drive to [place].. Noncardiac issues being managed by Dr. Spencer aHir. Assessment & Plan narrative: This is a 70-year-old with past medical history of paroxysmal atrial fibrillation status post ablation [place] [address] Darwin Blount at [facility] attention, type 2 diabetes, hyperlipidemia, history of heavy alcohol abuse, history of smoking quit smoking 10 years, systemic polyposis, COPD came to the emergency room with symptoms of nausea vomiting dry heaves. Patient was found to have episodes of paroxysmal atrial fibrillation and SVT. Pt is maintaining sinus rhythm with QTc 426msec. Started on Apixiban 5mg PO BID. Time-Based Coding :: [TOTAL MINUTES] spent with patient and on the chart (including review of chart, obtaining history, exam, reviewing outside data, placing orders, documenting exam and treatment plan, and counseling patient) on [DATE]. Quality VTE Deep Vein Thrombosis/Pulmonary Embolism Present on Admission: No
--- NOTE | 2025-09-29 10:39 | CM.DANOTE ---
DCP Assessment note pt is a 70yo M admitted with afib, recently here at for pancreatitis. POLISHER NUMERAL reviewed EMR. per RN, HR WNL overnight. normal rhythm. still having some abdominal pain. SBA with walker. POLISHER NUMERAL met with pt in room. reports lives in [place] with spouse, indep at baseline, uses walker. walker in room. reports only DCP need is interested in POLST Form. thinks he has DPOA paperwork already but will f/u with spouse. POLISHER NUMERAL provided POLST form. denies other DCP questions or needs at this time. P: eventual dc home with spouse support and OP f/u, anticipate another day or so. will continue to follow closely in case any additional DCP needs should arise GELY Benavidez Discharge Planning/Care Management CM Discharge Assessment Start: 09/28/25 06:32 Freq: Status: Active Protocol: Document 09/29/25 10:38 SL (Rec: 09/29/25 10:39 SL [id number]) Discharge Planning Assessment Assigned Discharge GELY Bazan Rn Referral Provider Symone Singh [facility] DPOA/Assigned [place] spouse Designee Name Contact Information [phone] Advance Directives? No History Provided By Patient Prior Living House Arrangements Household Members spouse Type of Drives own vehicle transporation used prior to admit Independent with ADL Yes 's Is patient alert and Yes oriented? DME Already Rented / FWW / Walker Owned Discharge Plan Home Referrals Initiated None needed Whiteboard Updated Yes in Patient Room with name and ext. # of Marketing Content Specialist Review Status In Process Please Provide Date 09/29/25 Initial DC Assessment Was Performed Next Review Type Continued Stay Review
--- NOTE | 2025-09-29 10:40 | DIET.CONS ---
Dietary Consultation Note Admission Date: 09/27/2025 23:55 Assessment: 70 y M admitted for Atrial fibrillation with RVR and recent acute pancreatitis. Dietitian screened for low MNA score. Previously met with pt and less than a week ago. No significant weight loss recently. Advancing diet today. Per EMR, pt was tolerating diet when d/c but reports continuing clears at home and still having nausea/bloating/gassy/belching. Ht: 193.04 cm Wt: 107.955 kg BMI: 29.0 UBW: 230# per pt within last month (104.5 kg) Last BM: 09/28/25 (09/28/25 13:06) MNA: 10 Erick Score: 21 Diet: 09/28/25 Lunch Clear Liquid Diet Diet Modifications: 09/29/25 Lunch General (Regular) Diet Diet Modifications: Food Texture: Level 7 - Regular Liquid Consistency: Level 0 - Thin Nutrition Percent Meal Consumed 75% 09/28/25 18:36 Percent Meal Consumed 50% 09/28/25 13:00 Percent Meal Consumed 50% 09/28/25 10:00 Labs: RBC 4.91 X10^6/uL (4.5-5.9) 09/28/25 06:12 Hgb 14.3 g/dL (13.5-17.5) 09/28/25 06:12 Hct 41.0 % (41-53) 09/28/25 06:12 Creatinine 0.76 mg/dL (0.66-1.25) 09/28/25 06:12 Lactate 1.4 mmol/L (0.7-2.1) 09/27/25 17:50 NT-Pro-B Natriuret Pep 832 pg/mL (<125) H 09/27/25 17:50 Nutrition Diagnosis: Inadequate oral intakes r/t altered GI function aeb pancreatitis and 1 weeks of <50% of estimated energy intakes Interventions: Assess diet tolerance. Glucerna trial and will continue daily if PO intakes <75% EER: 0175-1234 kcals (20 kcals/kg per BMI) 95-100 g protein (1 g/kg of adjusted IBW per age) Monitoring/Evaluations: po intakes ons tolerance Electronically Signed by: Millicent Mar 09/29/25 10:40 Clinical Dietitian [address] [address]
[2025-09-29] MEDS: TAMSULOSIN 0.4 MG CAPSULE PO (20:22)
[2025-09-30] VITALS (29 sets, daily range): BP systolic 130–151; BP diastolic 63–76; PULSE 52–82; RESP 13–26; TEMP 36.5–36.8; O2SAT 94–98
[2025-09-30] MEDS: ASPIRIN EC 81 MG TABLET PO (08:38)
[2025-09-30] MEDS: ATORVASTATIN 20 MG TABLET 40 MG PO (08:38)
[2025-09-30] MEDS: APIXABAN 5 MG TABLET PO (08:39)
[2025-09-30] MEDS: SOTALOL 80 MG TABLET 40 MG PO (08:39)
[2025-09-30] MEDS: IPRATROPIUM 0.5 MG/2.5 ML NEB INH (08:50)
[2025-09-30] MEDS: BUDESONIDE 0.5 MG/2 ML NEB INH (08:50)
--- NOTE | 2025-09-30 09:21 | PC.NURSE ---
Addendum entered by Bryn Bazzi RN 09/30/25 12:56: ARRIVED AT MAIN ENTRANCE. PT ESCORTED OUT TO MAIN ENTRANCE BY NICKOLAS CERVANTES AT 1249. Addendum entered by Bryn Bazzi RN 09/30/25 11:42: DISCHARGE PAPERWORK DISCUSSED WITH PATIENT. SIG PAGE SIGNED AND PLACED IN CHART. IV D/C'D. Original Note: 0913 DR DAMON AT BEDSIDE TO DISCUSS POC WITH PATIENT. PLAN TO D/C HOME TODAY.
--- NOTE | 2025-09-30 09:41 | PM.DS.1 ---
History of Present Illness History of Present Illness Chief complaint: pcp ref/ chest pain/shoulder pain Narrative: Summary (night doctor): 70-year-old male with past medical history of chronic atrial fibrillation status post cardiac ablation not on anticoagulation, BPH, hypertension, [id number] diabetes and hyperlipidemia presents with abdominal pain. Of note the patient recently was discharged yesterday from the hospital for acute pancreatitis. The patient states that when he got home he continued to have some nausea with abdominal bloating and pain. The patient did have some persistent belching but was any fever, chills, diarrhea, chest pain or shortness of breath. The patient did experience a palpitation. The patient returns to the ER as he concerned if his pancreatitis is still present. In the emergency room, the patient was hemodynamically stable. Labs shows normal lipase today. Troponin x 2. WBC is 12,000 and other labs were relatively benign. The patient however was in atrial fibrillation/flutter with RVR with heart rate in the 170s. The patient did require IV diltiazem drip. Of note the patient had an x-ray today suggesting normal bowel pattern. Dr. Salmeron from cardiology was also consulted and will see the patient in the morning. The patient stated IV fluid, IV Zofran, aspirin. S: He was feeling better, no palpitations, dyspnea or chest pain. He was currently on a diltiazem drip at 15 mils g per hour with sinus rhythm in the 70s. ROS: All else reviewed and otherwise unremarkable except as noted in the history and physical. O: VSS. NAD, alert and oriented, fluent speech, calm. Normocephalic skull, EOMI, anicteric sclera, symmetric pupils. Oropharynx unremarkable, no droop. Neck supple, midline trachea, no adenopathy. Lungs clear, normal rate and effort. Heart irregular, no murmur gallop or rub. Abdomen is soft, non distended and non tender. Extremities are free of edema. Skin is free of rash or lesions. Joints are not swollen or deformed. Judgment appears to be normal. IMAGING: Chest x-ray: No acute abnormality. September 25 chest, abdomen, pelvis CTA: No acute aortic syndrome. Findings suggestive of duodenitis. 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 Other chronic findings as above. ECHO 09/28/25: Technically difficult study. 1) Normal left ventricular thickness, size, wall motion, and systolic function (EF 65-70%). 2) MIldly enlarged right ventricle with normal function. 3) The left atrium is moderately dilated 4) No significant valvular abnormalities. 5) Compared to the Echo done 06/20/2021, no significant change. A/P: 1. Atrial fibrillation with RVR. Active. 2. Recent acute pancreatitis. Improved. 3. Vek-fgqyeyv-vjdmcklcr diabetes. Stable. 4. Hypertension. Stable. 5. Hyperlipidemia. Stable. Hospital course: He was admitted for atrial fibrillation RVR after a recent admission for pancreatitis. He was seen by Cardiology, started on sotalol and apixaban. He would normalization of his cardiac rhythm and remained in sinus rhythm. He had no other concerns or issues and was felt to be stable for discharge with close follow up with the [facility] web application dev specialist, Dr. Blount. [N], the patient has documentation of a left ventricle ejection fracture less than or equal to 40%, or moderately or severely reduced left ventricle systolic function. [N], the patient has a history of heart transplant or left ventricular assist device (LVAD). [N], the patient was prescribed an CHAN inhibitor at discharge or is already being taken. The patient was not prescribed an CHAN-inhibitor because of the following exception: NA. [N], the patient was prescribed Metoprolol succinate, bisoprolol, or carvedilol at discharge. The patient was not prescribed Metoprolol succinate, bisoprolol, or carvedilol at discharge because of the following exception: NA. Discharge Providers Provider Date of admission: 09/27/25 23:55 Discharge Date: 09/30/25 Primary care physician: Symone Kline MD Discharge provider: Spencer Hair MD Summary Hospital Course Discharge Diagnosis: Above. Status at Discharge Cognitive/behavioral status at discharge: oriented Functional status at discharge: uses cane/walker Overall status at discharge: patient is progressing back to baseline Time Spent with Patient Time spent: Greater than 30 minutes Exam Vital Signs (past 8 hours): - 09/30/25 02:00 09/30/25 02:30 09/30/25 03:00 Temperature Pulse Rate 61 60 57 L Respiratory Rate 20 18 21 Blood Pressure Pulse Oximetry Oxygen Delivery Method Oxygen Flow Rate 09/30/25 03:30 09/30/25 04:00 09/30/25 04:00 Temperature 98.0 F Pulse Rate 57 L 65 Respiratory Rate 24 22 Blood Pressure Pulse Oximetry Oxygen Delivery Method Oxygen Flow Rate 09/30/25 04:30 09/30/25 05:00 09/30/25 05:16 Temperature Pulse Rate 58 L 60 Respiratory Rate 26 H 23 Blood Pressure 130/63 Pulse Oximetry Oxygen Delivery Method Oxygen Flow Rate 09/30/25 05:16 09/30/25 05:30 09/30/25 06:00 Temperature Pulse Rate 55 L 58 L 56 L Respiratory Rate 20 21 21 Blood Pressure Pulse Oximetry Oxygen Delivery Method Oxygen Flow Rate 09/30/25 06:30 09/30/25 07:00 09/30/25 07:31 Temperature Pulse Rate 54 L 52 L Respiratory Rate 20 18 Blood Pressure 143/69 H Pulse Oximetry Oxygen Delivery Method Oxygen Flow Rate 09/30/25 07:31 09/30/25 08:00 09/30/25 08:00 Temperature 98.3 F Pulse Rate 58 L 59 L Respiratory Rate 21 19 Blood Pressure Pulse Oximetry 95 Oxygen Delivery Method Oxygen Flow Rate 09/30/25 08:30 09/30/25 08:30 09/30/25 09:27 Temperature Pulse Rate 69 75 Respiratory Rate 20 18 Blood Pressure Pulse Oximetry 98 Oxygen Delivery Method Room Air Room Air Oxygen Flow Rate 0 Oxygen Delivery Method Room Air Oxygen Flow Rate 0 Narrative Exam Narrative: NAD, alert and oriented. Fluent speech. Lungs are clear, normal rate and effort. Heart is regular, no murmur gallop or rub. Abdomen is soft, non distended. Extremities are free of edema. Objective Labs 09/28/25 06:12 09/28/25 06:12 [facility] Medical History Hypertension Chronic rhinosinusitis with multiple nasal polyps Nasal polyps Recurrent sinus infections Sinus congestion Seasonal allergies Asthma Sleep apnea (~2012) COPD (chronic obstructive pulmonary disease) (~1999) Mumps Chicken pox (~1964) Colon polyps (~2014) Surgical History Anesthesia History of back surgery (~2009) History of tonsillectomy (~1962) Status post Mohs surgery (~2017) History of cardiac radiofrequency ablation (~2020) Social History household members: spouse Smoking Status: Former smoker Tobacco: How many years used: 40 alcohol intake: current Type(s) of exercise: walking frequency: does not exercise Discharge Plan Discharge Plan Patient Disposition: Home Provider Discharge Comment: Stable for discharge home, close follow up with PCP and his web application dev specialist Dr. Blount. Discharge orders & Medications Prescriptions: New sotalol 80 mg Tablet 40 mg PO BID Qty: 60 1RF Eliquis 5 mg Tablet 5 mg PO BID Qty: 60 1RF Continued tamsulosin 0.4 mg capsule 0.4 mg PO ONCE PM ipratropium bromide 21 mcg (0.03 %) spray,non-aerosol 2 spray intranasal BID-TID PRN (Reason: allergy symptoms) Rx Instructions: administer into each nostril rosuvastatin 20 mg tablet 20 mg PO DAILY Qty: 90 3RF metformin 750 mg tablet extended release 24 hr 750 mg PO QAM Qty: 90 0RF budesonide 1 mg/2 mL suspension for nebulization 0.5 mg inhalation BID Qty: 60 12RF losartan-hydrochlorothiazide 100-25 mg tablet 1 tab PO DAILY Qty: 90 0RF amlodipine 5 mg tablet 5 mg PO DAILY ipratropium bromide 0.02 % solution 2.5 ml inhalation QID Qty: 150 12RF Rx Instructions: Please provide 90 day supply Follow up/Referrals: Symone Kline MD [Primary Care Provider, Family Practice] Diet/Activity/Treatments Diet: Regular Visit Report/Discharge Packet Instructions: DI for Atrial Fibrillation Stand Alone Forms: Patient Portal/API Discharge Data Primary Care Provider: Symone Kline Quality VTE Deep Vein Thrombosis/Pulmonary Embolism Present on Admission: No
--- NOTE | 2025-09-30 11:14 | CM.DPC ---
DCP Discharge Home Per MD, pt's heart rate in normal range and medically stable to d/c home today and no identified needs or barriers to discharge and orders placed. Spouse plans to provide transport for pt home today and no needs at this time. GELY Giron
== END 2025-09-30 12:49 | disposition home or self-care (01) | DRG 310 ==
LOC: ED 23:32 → AC 23:56 → ICU 09-28 09:07
PROVIDERS: Student in an Organized Health Care Education/Training Program; Admitting Provider Internal Medicine; Emergency Provider Emergency Medicine; PCP Family Medicine; Referring Provider Emergency Medicine; Visit Provider Internal Medicine
DX: I48.0 Paroxysmal atrial fibrillation (principal); I47.10 Supraventricular tachycardia, unspecified; E11.9 Type 2 diabetes mellitus without complications; I10 Essential (primary) hypertension; E78.5 Hyperlipidemia, unspecified; J44.9 Chronic obstructive pulmonary disease, unspecified; G47.30 Sleep apnea, unspecified; R11.2 Nausea with vomiting, unspecified; R14.0 Abdominal distension (gaseous); Z87.891 Personal history of nicotine dependence; Z79.84 Long term (current) use of oral hypoglycemic drugs; Z87.19 Personal history of other diseases of the digestive system
CPT/HCPCS: 36415; 74022; 80048; 80053; 82550; 83605; 83690; 83880; 84484; 85025; 93005; 94640; 94762; 96365; 96366; 96375; 99284; C8929; J1644; J2405; J2470; J2765; J2919; J7030; J7050; Q9957

== ENCOUNTER → 2025-11-01 12:27 | Outpatient (CLI) | payer MEDICARE, SELFPAY ==
[2025-09-28 13:06] VITALS: BMI 29.0
--- NOTE | 2025-11-01 12:39 | DI.MRI.S_ITS ---
PROCEDURE: MR CERVICAL SPINE WO CON INDICATIONS: upper extremity pain and weakness, burning pain,both shoulders TECHNIQUE: Noncontrast sagittal T1 spin echo and T2 fast spin echo, sagittal STIR, foraminal oblique sagittal T2 fast spin echo, and axial gradient echo or T2 fast spin echo through the cervical spine. COMPARISON: None. FINDINGS: Image quality: Excellent. Alignment and Curvature: Trace retrolisthesis of C4 on C5, C6 on C7 trace anterolisthesis of T1 on T2. Bone Marrow: Marrow demonstrates normal overall signal. Spinal Cord: Visualized spinal cord has normal size and signal. No cerebellar tonsillar herniation. Paraspinous Soft Tissues: No paravertebral masses. Prevertebral soft tissues are normal in thickness. C2-C3: Minimal disc bulge with effacement of the anterior thecal sac. Moderate to severe left and moderate right foraminal narrowing with uncovertebral hypertrophy. C3-C4: Mild disc bulge with minimal canal narrowing. Moderate to severe bilateral, left greater than right foraminal narrowing with uncovertebral hypertrophy. C4-C5: Mild disc bulge with moderate spinal stenosis. Moderate to severe bilateral foraminal narrowing with facet and ligamentum flavum hypertrophy. C5-C6: Mild disc bulge with mild spinal stenosis. Severe bilateral foraminal narrowing, left greater than right with uncovertebral hypertrophy. C6-C7: Mild disc bulge with moderate spinal stenosis. Severe bilateral foraminal narrowing, right greater than left with uncovertebral hypertrophy. C7-T1: Mild disc bulge including a left lateral component. Mild spinal stenosis. Moderate right foraminal narrowing. IMPRESSION: Multilevel disc bulges. Multilevel spinal stenosis most severe at C4-5, C6-7 secondary to disc bulge. Multilevel foraminal narrowing most severe at C5-6, C6-7 secondary to uncovertebral arthropathy. Dictated by: Eloina Alfonso M.D. on 11/01/2025 at 15:26 Approved by: Eloina Alfonso M.D. on 11/01/2025 at 15:30
== END ==
LOC: MRI 12:29
PROVIDERS: PCP Family Medicine; Referring Provider Family Medicine; Visit Provider Family Medicine
DX: M50.01 Cervical disc disorder with myelopathy, high cervical region (principal); M48.02 Spinal stenosis, cervical region; R29.898 Other symptoms and signs involving the musculoskeletal system; M25.519 Pain in unspecified shoulder
CPT/HCPCS: 72141

== ENCOUNTER → 2025-11-08 09:29 | Outpatient (CLI) | payer MEDICARE, SELFPAY ==
[2025-09-28 13:06] VITALS: BMI 29.0
[2025-11-08 09:45] LABS: Add Manual Diff / Slide Review NO; Hematocrit 37.5 % (41-53); Hemoglobin 12.6 g/dL (13.5-17.5); Lymphocytes Absolute Auto 1600 /uL (1100-4500); Mean Corpuscular HGB Conc 33.6 % (30-36); Mean Corpuscular Hemoglobin 27.9 PG (26-34); Mean Corpuscular Volume 82.9 fL (80-100); Platelet Count 301 X10^3/uL (150-400)
[2025-11-08 10:17] LABS: Alanine Aminotransferase 47 IU/L (<50); Albumin 4.0 g/dL (3.5-5.0); Albumin Globulin Ratio 1.3 (1.0-2.8); Alkaline Phosphatase 59 U/L (38-126); Blood Urea Nitrogen 18 mg/dL (9-20); Calcium 9.8 mg/dL (8.4-10.2); Carbon Dioxide 25 mmol/L (22-32); Chloride 106 mmol/L (98-107); Cholesterol 150 mg/dL (140-199); Estimated Glomerular Filt Rate > 60 mL/min (>60); Globulin 3.1 g/dL (1.7-4.1); Glucose 206 mg/dL (70-99); HDL Cholesterol 63 mg/dL (40-60); HEMOLYSIS < 15 (0-50); Potassium 4.8 mmol/L (3.4-5.1); Sodium 140 mmol/L (137-145); Total Protein 7.1 g/dL (6.3-8.2); Triglycerides 103 mg/dL (35-150)
== END ==
PROVIDERS: PCP Family Medicine; Referring Provider Family Medicine; Visit Provider Family Medicine
DX: M25.519 Pain in unspecified shoulder (principal); R53.83 Other fatigue; E78.5 Hyperlipidemia, unspecified; M25.559 Pain in unspecified hip; R11.2 Nausea with vomiting, unspecified; J32.9 Chronic sinusitis, unspecified; J33.9 Nasal polyp, unspecified; D72.829 Elevated white blood cell count, unspecified; J44.9 Chronic obstructive pulmonary disease, unspecified
CPT/HCPCS: 36415; 80053; 80061; 85025; 85651; 86038; 86140; 86200; 86430